=== PATIENT | male | born 1980 | race Caucasian/White ===

== ENCOUNTER → 2017-06-30 | Outpatient (REF) | payer OTHER | LOC: M SFHCLERA 11:59 | PROVIDERS: ATTEND Nurse Practitioner Family | DX: J02.9 Acute pharyngitis, unspecified (principal) ==

== ENCOUNTER → 2018-04-01 | Outpatient (CLI) | payer OTHER | LOC: M SLEEP 19:57 | DX: G47.30 Sleep apnea, unspecified (principal) | CPT/HCPCS: 95810 ==

== ENCOUNTER → 2018-04-29 | Outpatient (CLI) | payer OTHER | LOC: M SLEEP 19:47 | DX: G47.33 Obstructive sleep apnea (adult) (pediatric) (principal) | CPT/HCPCS: 95811 ==

== ENCOUNTER 2020-10-14 15:16 | Emergency (ER) | payer OTHER ==
[~2020-10-14] VITALS: Ht 177.8 cm; Wt 113.6 kg
[2020-10-14] MEDS ORDERED: IBUPROFEN 400MG TAB PO ONE (15:25)
[2020-10-14] MEDS ORDERED: PERCOCET 5MG/325MG TAB PO ONE (15:25)
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
[2020-10-14] MEDS ORDERED: OMEP-218 PO (16:13)
[2020-10-14] MEDS ORDERED: DULO1CAP6 PO (16:13)
[2020-10-14] MEDS ORDERED: HYDR-3363 (16:13)
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
[2020-10-14] MEDS ORDERED: IBUP-1022 PO (16:58)
[2020-10-14] MEDS ORDERED: SOMA350T PO (16:58)
[2020-10-14 17:15] VITALS: BP 142/85
== END 2020-10-14 17:16 | disposition home or self-care (01) ==
LOC: EDBD 15:16 → M ED 15:16
DX: M54.2 Cervicalgia (principal); M54.5 Low back pain; M25.511 Pain in right shoulder; T14.8XXA Other injury of unspecified body region, initial encounter; Y92.9 Unspecified place or not applicable; Y93.9 Activity, unspecified; M47.892 Other spondylosis, cervical region; M51.36 Other intervertebral disc degeneration, lumbar region; M47.816 Spondylosis without myelopathy or radiculopathy, lumbar region; M19.011 Primary osteoarthritis, right shoulder; Z88.2 Allergy status to sulfonamides

== ENCOUNTER → 2020-11-01 | Outpatient (CLI) | payer OTHER ==
[~2020-11-01] MED LIST: DULO1CAP6 PO; HYDR-3363; IBUP-1022 PO; OMEP-218 PO; PROHANCE 279.3MG/ML 15ML VIAL As Ordered ONE; PROHANCE 279.3MG/ML 5ML VIAL As Ordered ONE; SOMA350T PO
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
== END ==
LOC: M RAD 17:33
PROVIDERS: ATTEND Physician Assistant
DX: M25.472 Effusion, left ankle (principal); Z87.81 Personal history of (healed) traumatic fracture; D16.22 Benign neoplasm of long bones of left lower limb; M76.72 Peroneal tendinitis, left leg
CPT/HCPCS: 73720; A9576

== ENCOUNTER 2021-02-17 10:53 | Emergency (ER) | payer OTHER ==
[~2021-02-17] VITALS: Ht 177.8 cm; Wt 126.3 kg
[2021-02-17 10:53] VITALS: BP 146/98
[~2021-02-17 10:53] MED LIST changes: -PROHANCE 279.3MG/ML 15ML VIAL As Ordered ONE; -PROHANCE 279.3MG/ML 5ML VIAL As Ordered ONE; +RALTEGRAVIR 400 MG TAB (ISENTRESS) PO ONE; +TRUVADA 200MG/300MG TABLET PO ONE
[2021-02-17] MEDS ORDERED: RALT40TA PO ×2 (11:03→11:32)
[2021-02-17] MEDS ORDERED: HEPATITIS B VACCINE 20MCG/ML 1ML SYRINGE (ADULT DOSE) IM ONE (11:25)
[2021-02-17] MEDS ORDERED: EXPOSURE KIT-ADULT 7 DAY SUPPLY PO ONE (11:25)
[2021-02-17] MEDS ORDERED: TETANUS/DIPHTHERIA TOX ADSORB ADULT 0.5ML SYR/VIAL (90714) IM ONE (11:25)
[2021-02-17] MEDS ORDERED: ONDA4TAB6 PO (11:32)
[2021-02-17] MEDS ORDERED: EMTR1TAB16 PO (11:32)
[2021-02-17 12:00] LABS: BASO # 0.1 10^3/uL (0.0-0.2); BASO % 0.7 % (0.0-1.0); EOS # 0.1 10^3/uL (0.0-0.5); EOS % 0.7 % (0.0-3.0); HEMATOCRIT 48.6 % (42.0-52.0); HEMOGLOBIN 16.9 g/dl (13.5-17.5); LYMPH # 1.7 10^3/uL (1.5-5.0); LYMPH % 24.8 % (24.0-44.0); MEAN CORPUSCULAR HEMOGLOBIN 31.3 pg (27.0-33.0); MEAN CORPUSCULAR HGB CONC 34.8 g/dl (32.0-36.5); MONO # 0.4 10^3/uL (0.0-0.8); MONO % 5.5 % (2.0-8.0); NEUTROPHILS # 4.6 10^3/uL (1.5-8.5); PLATELET COUNT, AUTOMATED 181 10^3/uL (150-450); WHITE BLOOD COUNT 6.9 10^3/uL (4.0-10.0)
[2021-02-17 12:19] LABS: ALBUMIN 4.3 GM/DL (3.2-5.2); ALT/SGPT 40 U/L (12-78); BILIRUBIN,TOTAL 0.8 MG/DL (0.2-1.0); BLOOD UREA NITROGEN 15 MG/DL (7-18); CALCIUM LEVEL 9.6 MG/DL (8.5-10.1); CARBON DIOXIDE LEVEL 31 MEQ/L (21-32); CHLORIDE LEVEL 104 MEQ/L (98-107); CREATININE FOR GFR 1.02 MG/DL (0.70-1.30); GLOMERULAR FILTRATION RATE > 60.0 (>60); GLUCOSE, FASTING 97 MG/DL (70-100); POTASSIUM SERUM 4.1 MEQ/L (3.5-5.1); SODIUM LEVEL 140 MEQ/L (136-145); TOTAL PROTEIN 7.8 GM/DL (6.4-8.2)
[2021-02-17 12:34] LABS: HEPATITIS B SURFACE ANTIBODY NEGATIVE (POSITIVE)
[2021-02-17 12:45] LABS: HEPATITIS B SURFACE ANTIGEN NEGATIVE (NEGATIVE)
[2021-02-17 13:07] LABS: HEPATITIS C VIRUS ABY INDEX 0.1 INDEX (<0.8)
[2021-02-17 13:13] LABS: HIV 1&2 SCREEN CENTAUR NEGATIVE (NEGATIVE)
[2021-02-18] MEDS ORDERED: RALTEGRAVIR 400 MG TAB (ISENTRESS) PO SCH
[2021-02-18] MEDS ORDERED: TRUVADA 200MG/300MG TABLET PO SCH
== END 2021-02-17 14:55 | disposition home or self-care (01) ==
LOC: M ED 10:53
DX: Z77.21 Contact with and (suspected) exposure to potentially hazardous body fluids (principal); W46.1XXA Contact with contaminated hypodermic needle, initial encounter; Y92.9 Unspecified place or not applicable; Y93.9 Activity, unspecified; Y99.0 Civilian activity done for income or pay; K21.9 Gastro-esophageal reflux disease without esophagitis; Z88.2 Allergy status to sulfonamides; Z79.899 Other long term (current) drug therapy

== ENCOUNTER 2021-05-31 11:29 | Emergency (ER) | payer OTHER ==
[~2021-05-31] VITALS: Ht 177.8 cm; Wt 113.6 kg
[~2021-05-31 11:29] MED LIST changes: +EMTR1TAB16 PO; +ONDA4TAB6 PO; +RALT40TA PO; -RALTEGRAVIR 400 MG TAB (ISENTRESS) PO ONE; +RALTEGRAVIR 400 MG TAB (ISENTRESS) PO SCH; -TRUVADA 200MG/300MG TABLET PO ONE; +TRUVADA 200MG/300MG TABLET PO SCH
--- OUTSIDE RECORDS SUMMARY | 2021-05-31 11:35 | CCD ---
Author Author [facility] Organization [facility] Address Unknown Phone Unavailable Care Team Providers Care Cosmetic Sales Consultant Name Role Phone Radha, L Emely GEOGRAPHIC INFORMATION SYSTEMS DIRECTOR Unavailable Unavailable Radha, L Emely GEOGRAPHIC INFORMATION SYSTEMS DIRECTOR Unavailable Unavailable Radha, L Emely GEOGRAPHIC INFORMATION SYSTEMS DIRECTOR Unavailable Unavailable Radha, L Emely GEOGRAPHIC INFORMATION SYSTEMS DIRECTOR Unavailable Unavailable Radha, L Emely GEOGRAPHIC INFORMATION SYSTEMS DIRECTOR Unavailable Unavailable Radha, L Emely GEOGRAPHIC INFORMATION SYSTEMS DIRECTOR Unavailable Unavailable Radha, L Emely GEOGRAPHIC INFORMATION SYSTEMS DIRECTOR Unavailable Unavailable Radha, L Emely GEOGRAPHIC INFORMATION SYSTEMS DIRECTOR Unavailable Unavailable Radha, L Emely GEOGRAPHIC INFORMATION SYSTEMS DIRECTOR Unavailable Unavailable Radha, L Emely GEOGRAPHIC INFORMATION SYSTEMS DIRECTOR Unavailable Unavailable Radha, L Emely GEOGRAPHIC INFORMATION SYSTEMS DIRECTOR Unavailable Unavailable Radha, L Emely GEOGRAPHIC INFORMATION SYSTEMS DIRECTOR Unavailable Unavailable Radha, L Emely GEOGRAPHIC INFORMATION SYSTEMS DIRECTOR Unavailable Unavailable Radha, L Emely GEOGRAPHIC INFORMATION SYSTEMS DIRECTOR Unavailable Unavailable Radha, L Emely GEOGRAPHIC INFORMATION SYSTEMS DIRECTOR Unavailable Unavailable Radha, L Emely GEOGRAPHIC INFORMATION SYSTEMS DIRECTOR Unavailable Unavailable Radha, L Emely GEOGRAPHIC INFORMATION SYSTEMS DIRECTOR Unavailable Unavailable Radha, L Emely GEOGRAPHIC INFORMATION SYSTEMS DIRECTOR Unavailable Unavailable Radha, L Emely GEOGRAPHIC INFORMATION SYSTEMS DIRECTOR Unavailable Unavailable Radha, L Emely GEOGRAPHIC INFORMATION SYSTEMS DIRECTOR Unavailable Unavailable Radha, L Emely GEOGRAPHIC INFORMATION SYSTEMS DIRECTOR Unavailable Unavailable Radha, L Emely GEOGRAPHIC INFORMATION SYSTEMS DIRECTOR Unavailable Unavailable Radha, L Emely GEOGRAPHIC INFORMATION SYSTEMS DIRECTOR Unavailable Unavailable Radha, L Emely GEOGRAPHIC INFORMATION SYSTEMS DIRECTOR Unavailable Unavailable Radha, L Emely GEOGRAPHIC INFORMATION SYSTEMS DIRECTOR Unavailable Unavailable LETTIERE, A MIRNA PA Unavailable Unavailable LETTIERE, A MIRNA PA Unavailable Unavailable LETTIERE, A MIRNA PA Unavailable Unavailable LETTIERE, A MIRNA PA Unavailable Unavailable LETTIERE, A MIRNA PA Unavailable Unavailable LETTIERE, A MIRNA PA Unavailable Unavailable LETTIERE, A MIRNA PA Unavailable Unavailable LETTIERE, A MIRNA PA Unavailable Unavailable LETTIERE, A MIRNA PA Unavailable Unavailable LETTIERE, A MIRNA PA Unavailable Unavailable LETTIERE, A MIRNA PA Unavailable Unavailable LETTIERE, A MIRNA PA Unavailable Unavailable LETTIERE, A MIRNA PA Unavailable Unavailable LETTIERE, A MIRNA PA Unavailable Unavailable LETTIERE, A MIRNA PA Unavailable Unavailable LETTIERE, A MIRNA PA Unavailable Unavailable LETTIERE, A MIRNA PA Unavailable Unavailable LETTIERE, A MIRNA PA Unavailable Unavailable LETTIERE, A MIRNA PA Unavailable Unavailable LETTIERE, A MIRNA PA Unavailable Unavailable LETTIERE, A MIRNA PA Unavailable Unavailable LETTIERE, A MIRNA PA Unavailable Unavailable LETTIERE, A MIRNA PA Unavailable Unavailable LETTIERE, A MIRNA PA Unavailable Unavailable LETTIERE, A MIRNA PA Unavailable Unavailable LETTIERE, A MIRNA PA Unavailable Unavailable LETTIERE, A MIRNA PA Unavailable Unavailable LETTIERE, A MIRNA PA Unavailable Unavailable LETTIERE, A MIRNA PA Unavailable Unavailable LETTIERE, A MIRNA PA Unavailable Unavailable LETTIERE, A MIRNA PA Unavailable Unavailable Nevills, C Wendy GEOGRAPHIC INFORMATION SYSTEMS DIRECTOR Unavailable Unavailable Nevills, C Wendy GEOGRAPHIC INFORMATION SYSTEMS DIRECTOR Unavailable Unavailable Nevills, C Wendy GEOGRAPHIC INFORMATION SYSTEMS DIRECTOR Unavailable Unavailable Nevills, C Wendy GEOGRAPHIC INFORMATION SYSTEMS DIRECTOR Unavailable Unavailable Nevills, C Wendy GEOGRAPHIC INFORMATION SYSTEMS DIRECTOR Unavailable Unavailable Nevills, C Wendy GEOGRAPHIC INFORMATION SYSTEMS DIRECTOR Unavailable Unavailable Nevills, C Wendy GEOGRAPHIC INFORMATION SYSTEMS DIRECTOR Unavailable Unavailable Nevills, C Wendy GEOGRAPHIC INFORMATION SYSTEMS DIRECTOR Unavailable Unavailable Nevills, C Wendy GEOGRAPHIC INFORMATION SYSTEMS DIRECTOR Unavailable Unavailable Nevills, C Wendy GEOGRAPHIC INFORMATION SYSTEMS DIRECTOR Unavailable Unavailable Nevills, C Wendy GEOGRAPHIC INFORMATION SYSTEMS DIRECTOR Unavailable Unavailable Nevills, C Wendy GEOGRAPHIC INFORMATION SYSTEMS DIRECTOR Unavailable Unavailable Nevills, C Wendy GEOGRAPHIC INFORMATION SYSTEMS DIRECTOR Unavailable Unavailable Nevills, C Wendy GEOGRAPHIC INFORMATION SYSTEMS DIRECTOR Unavailable Unavailable Nevills, C Wendy GEOGRAPHIC INFORMATION SYSTEMS DIRECTOR Unavailable Unavailable Nevills, C Wendy GEOGRAPHIC INFORMATION SYSTEMS DIRECTOR Unavailable Unavailable Nevills, C Wendy GEOGRAPHIC INFORMATION SYSTEMS DIRECTOR Unavailable Unavailable Nevills, C Wendy GEOGRAPHIC INFORMATION SYSTEMS DIRECTOR Unavailable Unavailable Nevills, C Wendy GEOGRAPHIC INFORMATION SYSTEMS DIRECTOR Unavailable Unavailable Nevills, C Wendy GEOGRAPHIC INFORMATION SYSTEMS DIRECTOR Unavailable Unavailable Nevills, C Wendy GEOGRAPHIC INFORMATION SYSTEMS DIRECTOR Unavailable Unavailable Nevills, C Wendy GEOGRAPHIC INFORMATION SYSTEMS DIRECTOR Unavailable Unavailable Nevills, C Wendy GEOGRAPHIC INFORMATION SYSTEMS DIRECTOR Unavailable Unavailable Nevills, C Wendy GEOGRAPHIC INFORMATION SYSTEMS DIRECTOR Unavailable Unavailable Nevills, C Wendy GEOGRAPHIC INFORMATION SYSTEMS DIRECTOR Unavailable Unavailable Nevills, C Wendy GEOGRAPHIC INFORMATION SYSTEMS DIRECTOR Unavailable Unavailable Nevills, C Wendy GEOGRAPHIC INFORMATION SYSTEMS DIRECTOR Unavailable Unavailable Nevills, C Wendy GEOGRAPHIC INFORMATION SYSTEMS DIRECTOR Unavailable Unavailable Nevills, C Wendy GEOGRAPHIC INFORMATION SYSTEMS DIRECTOR Unavailable Unavailable Nevills, C Wendy GEOGRAPHIC INFORMATION SYSTEMS DIRECTOR Unavailable Unavailable Nevills, C Wendy GEOGRAPHIC INFORMATION SYSTEMS DIRECTOR Unavailable Unavailable Nevills, C Wendy GEOGRAPHIC INFORMATION SYSTEMS DIRECTOR Unavailable Unavailable Nevills, C Wendy GEOGRAPHIC INFORMATION SYSTEMS DIRECTOR Unavailable Unavailable Nevills, C Wendy GEOGRAPHIC INFORMATION SYSTEMS DIRECTOR Unavailable Unavailable Rubio, Rashel Priset MD Unavailable Unavailable Rubio, Rashel Priest MD Unavailable Unavailable Rubio, Rashel Priest MD Unavailable Unavailable Rubio, Rashel Priest MD Unavailable Unavailable Rubio, Rashel Priest MD Unavailable Unavailable Rubio, Rashel Priest MD Unavailable Unavailable Rubio, Rashel Priest MD Unavailable Unavailable Rubio, Rashel Priest MD Unavailable Unavailable Rubio, Rashel Priest MD Unavailable Unavailable Rubio, Rashel Priest MD Unavailable Unavailable Rubio, Rashel Priest MD Unavailable Unavailable Rubio, Rashel Priest MD Unavailable Unavailable Rubio, Rashel Priest MD Unavailable Unavailable Rubio, Rashel Priest MD Unavailable Unavailable Rubio, Rashel Priest MD Unavailable Unavailable Rubio, Rashel Priest MD Unavailable Unavailable Rubio, Rashel Priest MD Unavailable Unavailable Rubio, Rashel Priest MD Unavailable Unavailable Rubio, Rashel Priest MD Unavailable Unavailable Rubio, Rashel Priest MD Unavailable Unavailable Rubio, Rashel Priest MD Unavailable Unavailable Rubio, Rashel Priest MD Unavailable Unavailable Rubio, Rashel Priest MD Unavailable Unavailable Rubio, Rashel Priest MD Unavailable Unavailable Rubio, Rashel Priest MD Unavailable Unavailable Rubio, Rashel Priest MD Unavailable Unavailable Rubio, Rashel Priest MD Unavailable Unavailable Rubio, Rashel Priest MD Unavailable Unavailable Rubio, Rashel Priest MD Unavailable Unavailable Rubio, Rashel Priest MD Unavailable Unavailable Rubio, Rashel Priest MD Unavailable Unavailable Rubio, Rashel Priest MD Unavailable Unavailable Rubio, Rashel Priest MD Unavailable Unavailable Rubio, Rashel Priest MD Unavailable Unavailable Rubio, Rashel Priest MD Unavailable Unavailable Rubio, Rashel Priest MD Unavailable Unavailable Rubio, Rashel Priest MD Unavailable Unavailable Rubio, Rashel Priest MD Unavailable Unavailable Rubio, Rashel Priest MD Unavailable Unavailable Rubio, Rashel Priest MD Unavailable Unavailable Rubio, Rashel Priest MD Unavailable Unavailable Rubio, Rashel Priest MD Unavailable Unavailable Rubio, Rashel Priest MD Unavailable Unavailable Rubio, Rashel Priest MD Unavailable Unavailable Rubio, Rashel Priest MD Unavailable Unavailable Rubio, Rashel Priest MD Unavailable Unavailable Rubio, Rashel Priest MD Unavailable Unavailable Rashel Rubio MD Unavailable Unavailable Rashel Rubio MD Unavailable Unavailable Rashel Rubio MD Unavailable Unavailable SANDOVAL, J LAURYN PA Unavailable Unavailable SANDOVAL, J LAURYN PA Unavailable Unavailable SANDOVAL, J LAURYN PA Unavailable Unavailable SANDOVAL, J LAURYN PA Unavailable Unavailable SANDOVAL, J LAURYN PA Unavailable Unavailable SANDOVAL, J LAURYN PA Unavailable Unavailable SANDOVAL, J LAURYN PA Unavailable Unavailable SANDOVAL, J LAURYN PA Unavailable Unavailable SANDOVAL, J LAURYN PA Unavailable Unavailable SANDOVAL, J LAURYN PA Unavailable Unavailable SANDOVAL, J LAURYN PA Unavailable Unavailable SANDOVAL, J LAURYN PA Unavailable Unavailable SANDOVAL, J LAURYN PA Unavailable Unavailable SANDOVAL, J LAURYN PA Unavailable Unavailable SANDOVAL, J LAURYN PA Unavailable Unavailable SANDOVAL, J LAURYN PA Unavailable Unavailable SANDOVAL, J LAURYN PA Unavailable Unavailable SANDOVAL, J LAURYN PA Unavailable Unavailable SANDOVAL, J LAURYN PA Unavailable Unavailable SANDOVAL, J LAURYN PA Unavailable Unavailable SANDOVAL, J LAURYN PA Unavailable Unavailable SANDOVAL, J LAURYN PA Unavailable Unavailable SANDOVAL, J LAURYN PA Unavailable Unavailable SANDOVAL, J LAURYN PA Unavailable Unavailable SANDOVAL, J LAURYN PA Unavailable Unavailable SANDOVAL, J LAURYN PA Unavailable Unavailable SANDOVAL, J LAURYN PA Unavailable Unavailable Diego Mayo MD Unavailable Unavailable Diego Mayo MD Unavailable Unavailable Diego Mayo MD Unavailable Unavailable Diego Mayo MD Unavailable Unavailable Diego Mayo MD Unavailable Unavailable Diego Mayo MD Unavailable Unavailable Diego Mayo MD Unavailable Unavailable Diego Mayo MD Unavailable Unavailable Diego Mayo MD Unavailable Unavailable Diego Mayo MD Unavailable Unavailable Diego Mayo MD Unavailable Unavailable Diego Mayo MD Unavailable Unavailable Diego Mayo MD Unavailable Unavailable Diego Mayo MD Unavailable Unavailable Diego Mayo MD Unavailable Unavailable Diego Mayo MD Unavailable Unavailable Diego Mayo MD Unavailable Unavailable Diego Mayo MD Unavailable Unavailable Diego Mayo MD Unavailable Unavailable Diego Mayo MD Unavailable Unavailable Diego Mayo MD Unavailable Unavailable Diego Mayo MD Unavailable Unavailable Diego Mayo MD Unavailable Unavailable Diego Mayo MD Unavailable Unavailable Diego Mayo MD Unavailable Unavailable Diego Mayo MD Unavailable Unavailable Diego Mayo MD Unavailable Unavailable Diego Mayo MD Unavailable Unavailable Diego Mayo MD Unavailable Unavailable Gael, Diego Talbert MD Unavailable Unavailable Gael, Diego Talbert MD Unavailable Unavailable Gael, Diego Talbert MD Unavailable Unavailable Gael, Diego Talbert MD Unavailable Unavailable Gael, Diego Talbert MD Unavailable Unavailable Gael, Diego Talbert MD Unavailable Unavailable Gael, Diego Talbert MD Unavailable Unavailable Gael, Diego Talbert MD Unavailable Unavailable Gael, Diego Talbert MD Unavailable Unavailable Gael, Diego Talbert MD Unavailable Unavailable Gael, Diego Talbert MD Unavailable Unavailable Gael, Diego Talbert MD Unavailable Unavailable Gael, Diego Talbert MD Unavailable Unavailable Walker, A Karina PA Unavailable Unavailable Walker, A Karina PA Unavailable Unavailable Walker, A Karina PA Unavailable Unavailable Walker, A Karina PA Unavailable Unavailable Walker, A Karina PA Unavailable Unavailable Walker, A Karina PA Unavailable Unavailable Walker, A Karina PA Unavailable Unavailable Walker, A Karina PA Unavailable Unavailable Walker, A Karina PA Unavailable Unavailable Walker, A Karina PA Unavailable Unavailable Walker, A Karina PA Unavailable Unavailable Walker, A Karina PA Unavailable Unavailable Walker, A Karina PA Unavailable Unavailable Walker, A Karina PA Unavailable Unavailable Walker, A Karina PA Unavailable Unavailable Walker, A Karina PA Unavailable Unavailable Walker, A Karina PA Unavailable Unavailable Walker, A Karina PA Unavailable Unavailable Walker, A Karina PA Unavailable Unavailable Walker, A Karina PA Unavailable Unavailable Walker, A Karina PA Unavailable Unavailable Walker, A Karina PA Unavailable Unavailable Walker, A Karina PA Unavailable Unavailable Walker, A Karina PA Unavailable Unavailable Walker, A Karina PA Unavailable Unavailable Walker, A Karina PA Unavailable Unavailable Walker, A Karina PA Unavailable Unavailable Walker, A Karina PA Unavailable Unavailable Walker, A Karina PA Unavailable Unavailable Walker, A Karina PA Unavailable Unavailable Walker, A Karina PA Unavailable Unavailable Walker, A Karina PA Unavailable Unavailable Walker, A Karina PA Unavailable Unavailable Walker, A Karina PA Unavailable Unavailable Walker, A Karina PA Unavailable Unavailable Walker, A Karina PA Unavailable Unavailable Nevills, C Wendy GEOGRAPHIC INFORMATION SYSTEMS DIRECTOR Unavailable Unavailable Nevills, C Wendy GEOGRAPHIC INFORMATION SYSTEMS DIRECTOR Unavailable Unavailable Nevills, C Wendy GEOGRAPHIC INFORMATION SYSTEMS DIRECTOR Unavailable Unavailable Nevills, C Wendy GEOGRAPHIC INFORMATION SYSTEMS DIRECTOR Unavailable Unavailable Nevills, C Wendy GEOGRAPHIC INFORMATION SYSTEMS DIRECTOR Unavailable Unavailable Nevills, C Wendy GEOGRAPHIC INFORMATION SYSTEMS DIRECTOR Unavailable Unavailable Nevills, C Wendy GEOGRAPHIC INFORMATION SYSTEMS DIRECTOR Unavailable Unavailable Nevills, C Wendy GEOGRAPHIC INFORMATION SYSTEMS DIRECTOR Unavailable Unavailable Nevills, C Wendy GEOGRAPHIC INFORMATION SYSTEMS DIRECTOR Unavailable Unavailable Nevills, C Wendy GEOGRAPHIC INFORMATION SYSTEMS DIRECTOR Unavailable Unavailable Nevills, C Wendy GEOGRAPHIC INFORMATION SYSTEMS DIRECTOR Unavailable Unavailable Nevills, C Wendy GEOGRAPHIC INFORMATION SYSTEMS DIRECTOR Unavailable Unavailable Nevills, C Wendy GEOGRAPHIC INFORMATION SYSTEMS DIRECTOR Unavailable Unavailable Nevills, C Wendy GEOGRAPHIC INFORMATION SYSTEMS DIRECTOR Unavailable Unavailable Nevills, C Wendy GEOGRAPHIC INFORMATION SYSTEMS DIRECTOR Unavailable Unavailable Nevills, C Wendy GEOGRAPHIC INFORMATION SYSTEMS DIRECTOR Unavailable Unavailable Nevills, C Wendy GEOGRAPHIC INFORMATION SYSTEMS DIRECTOR Unavailable Unavailable Nevills, C Wendy GEOGRAPHIC INFORMATION SYSTEMS DIRECTOR Unavailable Unavailable Nevills, C Wendy GEOGRAPHIC INFORMATION SYSTEMS DIRECTOR Unavailable Unavailable Nevills, C Wendy GEOGRAPHIC INFORMATION SYSTEMS DIRECTOR Unavailable Unavailable Nevills, C Wendy GEOGRAPHIC INFORMATION SYSTEMS DIRECTOR Unavailable Unavailable Nevills, C Wendy GEOGRAPHIC INFORMATION SYSTEMS DIRECTOR Unavailable Unavailable Nevills, C Wendy GEOGRAPHIC INFORMATION SYSTEMS DIRECTOR Unavailable Unavailable Nevills, C Wendy GEOGRAPHIC INFORMATION SYSTEMS DIRECTOR Unavailable Unavailable Nevills, C Wendy GEOGRAPHIC INFORMATION SYSTEMS DIRECTOR Unavailable Unavailable Nevills, C Wendy GEOGRAPHIC INFORMATION SYSTEMS DIRECTOR Unavailable Unavailable Nevills, C Wendy GEOGRAPHIC INFORMATION SYSTEMS DIRECTOR Unavailable Unavailable Nevills, C Wendy GEOGRAPHIC INFORMATION SYSTEMS DIRECTOR Unavailable Unavailable Nevills, C Wendy GEOGRAPHIC INFORMATION SYSTEMS DIRECTOR Unavailable Unavailable Nevills, C Wendy GEOGRAPHIC INFORMATION SYSTEMS DIRECTOR Unavailable Unavailable Nevills, C Wendy GEOGRAPHIC INFORMATION SYSTEMS DIRECTOR Unavailable Unavailable Nevills, C Wendy GEOGRAPHIC INFORMATION SYSTEMS DIRECTOR Unavailable Unavailable Nevills, C Wendy GEOGRAPHIC INFORMATION SYSTEMS DIRECTOR Unavailable Unavailable Nevills, C Wendy GEOGRAPHIC INFORMATION SYSTEMS DIRECTOR Unavailable Unavailable Crow Apodaca PA Unavailable Unavailable Crow [place] PA Unavailable Unavailable Crow [place] PA Unavailable Unavailable Crow [place] PA Unavailable Unavailable Crow [place] PA Unavailable Unavailable Crow [place] PA Unavailable Unavailable Crow [place] PA Unavailable Unavailable Crow [place] PA Unavailable Unavailable Crow [place] PA Unavailable Unavailable Crow [place] PA Unavailable Unavailable Crow [place] PA Unavailable Unavailable Crow [place] PA Unavailable Unavailable Crow [place] PA Unavailable Unavailable Crow [place] PA Unavailable Unavailable Crow [place] PA Unavailable Unavailable Crow [place] PA Unavailable Unavailable Crow [place] PA Unavailable Unavailable Crow [place] PA Unavailable Unavailable Crow [place] PA Unavailable Unavailable Crow [place] PA Unavailable Unavailable Crow [place] PA Unavailable Unavailable Crow [place] PA Unavailable Unavailable Crow [place] PA Unavailable Unavailable Crow [place] PA Unavailable Unavailable Crow [place] PA Unavailable Unavailable Crow [place] PA Unavailable Unavailable Crow [place] Unavailable Unavailable Crow [place] Unavailable Unavailable [place], M Barratt PA Unavailable Unavailable SANDOVAL, J LAURYN PA Unavailable Unavailable SANDOVAL, J LAURYN PA Unavailable Unavailable SANDOVAL, J LAURYN PA Unavailable Unavailable SANDOVAL, J LAURYN PA Unavailable Unavailable SANDOVAL, J LAURYN PA Unavailable Unavailable SANDOVAL, J LAURYN PA Unavailable Unavailable SANDOVAL, J LAURYN PA Unavailable Unavailable SANDOVAL, J LAURYN PA Unavailable Unavailable SANDOVAL, J LAURYN PA Unavailable Unavailable SANDOVAL, J LAURYN PA Unavailable Unavailable SANDOVAL, J LAURYN PA Unavailable Unavailable SANDOVAL, J LAURYN PA Unavailable Unavailable SANDOVAL, J LAURYN PA Unavailable Unavailable SANDOVAL, J LAURYN PA Unavailable Unavailable SANDOVAL, J LAURYN PA Unavailable Unavailable SANDOVAL, J LAURYN PA Unavailable Unavailable SANDOVAL, J LAURYN PA Unavailable Unavailable SANDOVAL, J LAURYN PA Unavailable Unavailable SANDOVAL, J LAURYN PA Unavailable Unavailable SANDOVAL, J LAURYN PA Unavailable Unavailable SANDOVAL, J LAURYN PA Unavailable Unavailable SANDOVAL, J LAURYN PA Unavailable Unavailable SANDOVAL, J LAURYN PA Unavailable Unavailable SANDOVAL, J LAURYN PA Unavailable Unavailable SANDOVAL, J LAURYN PA Unavailable Unavailable SANDOVAL, J LAURYN PA Unavailable Unavailable SANDOVAL, J LAURYN PA Unavailable Unavailable Davin, Krystle Melissa ANP-BC Unavailable Unavailable Davin, Krystle Melissa ANP-BC Unavailable Unavailable Davin, Krystle Melissa ANP-BC Unavailable Unavailable Davin, Krystle Melissa ANP-BC Unavailable Unavailable Davin, Krystle Melissa ANP-BC Unavailable Unavailable Davin, Krystle Melissa ANP-BC Unavailable Unavailable Davin, Krystle Melissa ANP-BC Unavailable Unavailable Davin, Krystle Melissa ANP-BC Unavailable Unavailable Davin, Krystle Melissa ANP-BC Unavailable Unavailable Davin, Krystle Melissa ANP-BC Unavailable Unavailable Davin, Krystle Melissa ANP-BC Unavailable Unavailable Davin, Krystle Melissa ANP-BC Unavailable Unavailable Davin, Krystle Melissa ANP-BC Unavailable Unavailable Davin, Krystle Melissa ANP-BC Unavailable Unavailable Davin, Krystle Melissa ANP-BC Unavailable Unavailable Davin, Krystle Melissa ANP-BC Unavailable Unavailable Davin, Krystle Melissa ANP-BC Unavailable Unavailable Davin, Krystle Melissa ANP-BC Unavailable Unavailable Davin, Krystle Melissa ANP-BC Unavailable Unavailable Davin, Krystle Melsisa ANP-BC Unavailable Unavailable Davin, Krystle Melissa ANP-BC Unavailable Unavailable Davin, Krystle Melissa ANP-BC Unavailable Unavailable Davni, Krystle Melissa ANP-BC Unavailable Unavailable Davin, Krystle Melissa ANP-BC Unavailable Unavailable Davin, Krystle Melissa ANP-BC Unavailable Unavailable Davin, Krystle Melissa ANP-BC Unavailable Unavailable Davin, Krystle Melissa ANP-BC Unavailable Unavailable Davin, Krystle Melissa ANP-BC Unavailable Unavailable Davin, Krystle Melissa ANP-BC Unavailable Unavailable Davin, Krystle Melissa ANP-BC Unavailable Unavailable Davin, Krystle Melissa ANP-BC Unavailable Unavailable Davin, Krystle Melissa ANP-BC Unavailable Unavailable Davin, Krystle Melissa ANP-BC Unavailable Unavailable Davin, Krystle Melissa ANP-BC Unavailable Unavailable Davin, Krystle Melissa ANP-BC Unavailable Unavailable Davin, Krystle Melissa ANP-BC Unavailable Unavailable Davin, Krystle Melissa ANP-BC Unavailable Unavailable Davin, Krystle Melissa ANP-BC Unavailable Unavailable Davin, Krystle Melissa ANP-BC Unavailable Unavailable Davin, Krystle Melissa ANP-BC Unavailable Unavailable Davin, Krystle Melissa ANP-BC Unavailable Unavailable Davin, Krystle Melissa ANP-BC Unavailable Unavailable Davin, Krystle Melissa ANP-BC Unavailable Unavailable Davin, Krystle Melissa ANP-BC Unavailable Unavailable Davin, Krystle Melissa ANP-BC Unavailable Unavailable Davin, Krystle Melissa ANP-BC Unavailable Unavailable Davin, Krystle Melissa ANP-BC Unavailable Unavailable Davin, Krystle Emlissa ANP-BC Unavailable Unavailable Davin, Krystle Melissa ANP-BC Unavailable Unavailable Davin, Krystle Melissa ANP-BC Unavailable Unavailable Davin, Krystle Melissa ANP-BC Unavailable Unavailable Davin, Kryslte Melissa ANP-BC Unavailable Unavailable Davin, Krystle Melissa ANP-BC Unavailable Unavailable Davin, Krystle Melissa ANP-BC Unavailable Unavailable Davin, Krystle Melissa ANP-BC Unavailable Unavailable Davin, Krystle Melissa ANP-BC Unavailable Unavailable Davin, Krystle Melissa ANP-BC Unavailable Unavailable Davin, Krystle Melissa ANP-BC Unavailable Unavailable Davin, Krystle Melissa ANP-BC Unavailable Unavailable Davin, Krystle Melissa ANP-BC Unavailable Unavailable Davin, Krystle Melissa ANP-BC Unavailable Unavailable Davin, Krystle Melissa ANP-BC Unavailable Unavailable Davin, Krystle Melissa ANP-BC Unavailable Unavailable Krystle Jinn ANP-BC Unavailable Unavailable Davin, Krystle Melissa ANP-BC Unavailable Unavailable Davin, Krystle Galician ANP-BC Unavailable Unavailable Arroyo, M Christopher PA-C Unavailable Unavailable Arroyo, M Christopher PA-C Unavailable Unavailable Arroyo, M Christopher PA-C Unavailable Unavailable Arroyo, M Christopher PA-C Unavailable Unavailable Arroyo, M Christopher PA-C Unavailable Unavailable Arroyo, M Christopher PA-C Unavailable Unavailable Arroyo, M Christopher PA-C Unavailable Unavailable Arroyo, M Christopher PA-C Unavailable Unavailable Arroyo, M Christopher PA-C Unavailable Unavailable Arroyo, M Christopher PA-C Unavailable Unavailable Arroyo, M Christopher PA-C Unavailable Unavailable Arroyo, M Christopher PA-C Unavailable Unavailable Arroyo, M Christopher PA-C Unavailable Unavailable Arroyo, M Christopher PA-C Unavailable Unavailable Arroyo, M Christopher PA-C Unavailable Unavailable Arroyo, M Christopher PA-C Unavailable Unavailable Arroyo, M Christopher PA-C Unavailable Unavailable Arroyo, M Christopher PA-C Unavailable Unavailable Arroyo, M Christopher PA-C Unavailable Unavailable Arroyo, M Christopher PA-C Unavailable Unavailable Arroyo, M Christopher PA-C Unavailable Unavailable Arroyo, M Christopher PA-C Unavailable Unavailable Arroyo, M Christopher PA-C Unavailable Unavailable Arroyo, M Christopher PA-C Unavailable Unavailable Arroyo, M Christopher PA-C Unavailable Unavailable Arroyo, M Christopher PA-C Unavailable Unavailable Re-disclosure Warning The records that you are about to access may contain information from federally-assisted alcohol or drug abuse programs. If such information is present, then the following federally mandated warning applies: This information has been disclosed to you from records protected by federal confidentiality rules (42 CFR part 2). The federal rules prohibit you from making any further disclosure of this information unless further disclosure is expressly permitted by the written consent of the person to whom it pertains or as otherwise permitted by 42 CFR part 2. A general authorization for the release of medical or other information is NOT sufficient for this purpose. The Federal rules restrict any use of the information to criminally investigate or prosecute any alcohol or drug abuse patient.The records that you are about to access may contain highly sensitive health information, the redisclosure of which is protected by Article 27-F of the [facility] Public Health law. If you continue you may have access to information: Regarding HIV / AIDS; Provided by facilities licensed or operated by the [facility] Office of Mental Health; or Provided by the [facility] Office for People With Developmental Disabilities. If such information is present, then the following [facility] mandated warning applies: This information has been disclosed to you from confidential records which are protected by state law. State law prohibits you from making any further disclosure of this information without the specific written consent of the person to whom it pertains, or as otherwise permitted by law. Any unauthorized further disclosure in violation of state law may result in a fine or group home sentence or both. A general authorization for the release of medical or other information is NOT sufficient authorization for further disc losure. Family History Family Member Name Family Member Gender Family Member Status Date o f Status Description Data Source(s) Unknown Male Problem [facility] ([facility] Encounters Encounter Providers Location Date Indications Data Source(s ) Outpatient Attender: Nitish Mayo MDConsultant: Karina INTERIANO 03/05/2021 01:08:00 PM EDT - 03/05/2021 01:08:00 PM EDT [facility] Outpatient Attender: Emely Layton/Leanne/Taye/Sherry 12/23/2020 01:00:00 PM EDT [facility] ([facility] Outpatient Attender: Wendy Dolan NPConsultant: Karina INTERIANO 12/03/2020 08:25:00 AM EDT - 12/03/2020 08:25:00 AM EDT [facility] Outpatient Attender: Wendy Dolan NPConsultant: Karina INTERIANO 11/27/2020 09:41:00 AM EDT - 11/27/2020 09:41:00 AM EDT [facility] Outpatient Attender: Wendy Dolan NP Family Practice 11/27 09:40:00 AM EDT [facility] ([facility]) Outpatient Attender: Trevor INTERIANO Physical Therapy 02:00:00 PM EDT [facility] ([facility]) Outpatient Attender: Dale Arroyo PA-C 10/27/2020 04:38:26 PM EDT - 10/27/2020 07:17:30 PM EDT [facility] ([facility]) Outpatient Attender: Cem Rubio MD Physical Therapy 10/24/2020 0 3:15:00 PM EDT [facility] ([facility]) Outpatient Attender: Melissa Jin ANP-BCA ttender: Wendy Dolan NPConsultant: Karina INTERIANO 10/08/2020 08:28:00 AM EDT - 10/08/2020 08:28 :00 AM EDT [facility] Outpatient Attender: Melissa Jin ANP-BCConsultant: Karina INTERIANO 08/27/2020 09:13:00 AM EST - 08/27/2020 09:13:00 AM EST [facility] Outpatient Attender: MIRNA Bach aletha 07/05/2020 07:20:00 AM EST [facility] ([facility]) Outpatient Attender: LAURYN SANDOVAL PAConsultant: Karina INTERIANO 05/07/2020 03:26:00 PM EDT - 05/07/2020 03:26:00 PM EDT [facility] Outpatient Attender: LAURYN INTERIANO Family Practice 05/07 03:20:00 PM EDT [facility] ([facility] Medications Medication Brand Name Start Date Product Form Dose Route Admi nistrative Instructions Pharmacy Instructions Status Indications Reaction Description Data Source(s) 100 mg 03/05/2021 12:00:00 AM EDT capsule 90 TAKE THREE CAPSULES BY MOUTH EVERY DAY TAKE THREE CAPSULES BY MOUTH EVERY DAY SOLD: 03/17/2021 [facility] 200-300 mg 02/24/2021 12:00:00 AM EDT tablet 21 TAKE ONE TABLET BY MOUTH EVERY DAY TAKE ONE TABLET BY MOUTH EVERY DAY SOLD: 02/24/2021 [facility] 400 mg 02/24/2021 12:00:00 AM EDT tablet 42 TAKE ONE TABLET BY MOUTH TWICE A DAY TAKE ONE TABLET BY MOUTH TWICE A DAY SOLD: 02/24/2021 [facility] Ondansetron 4 MG Disintegrating Oral Tablet ONDANSETRON 02/17/2021 12:00:00 AM EDT tablet,disintegrating 8 DISSOLVE O NE TABLET ON TONGUE EVERY 6 TO 8 HOURS NEEDED FOR NAUSEA AND VOMITING DISSOLVE ONE TABLET ON TONGUE EVERY 6 TO 8 HOURS NEEDED FOR NAUSEA AND VOMITING SOLD: 02/17/2021 [facility] Diclofenac Sodium 0.01 MG/MG Topical Gel [Voltaren] Voltaren 11/27/2020 12:00:00 AM EDT active [facility] ([facility]) 500 mg 10/25/2020 12:00:00 AM EDT tablet 60 TAKE ONE TABLET BY MOUTH TWICE A DAY TAKE ONE TABLET BY MOUTH TWICE A DAY SOLD: 11/01/2020 [facility] Naproxen 500 MG Oral Tablet [Naprosyn] Naprosyn 10/24/2020 12:00:00 AM EDT ORAL active [facility] ([facility] 600 mg 10/14/2020 12:00:00 AM EDT tablet 30 TAKE ONE TABLET BY MOUTH EVERY 6 HOURS NEEDED FOR PAIN TAKE ONE TABLET BY MOUTH EVERY 6 HOURS A S NEEDED FOR PAIN SOLD: 10/14/2020 [facility] 350 mg 10/14/2020 12:00:00 AM EDT tablet 15 TAKE ONE TABLET BY MOUTH THREE TIMES A DAY NEEDED FOR MUSCLE SPASM MAXIMUM DAILY DOSE = 3 TAKE ONE TABLET BY MOUTH THREE TIMES A DAY NEEDED FOR MUSCLE SPASM MAXIMUM DAILY DOSE = 3 SOLD: 10/14/2020 [facility] duloxetine 60 MG Delayed Release Oral Capsule Duloxetine HCL 05/07/2020 12:00:00 AM EDT active [facility] ([facility]) Melatonin 5 MG Sublingual Tablet Melatonin 05/07/2020 12:00:00 AM EDT ORAL active [facility] ([facility]) 20 mg 12/26/2019 12:00:00 AM EDT capsule,delayed release (DR/EC) 30 TAKE ONE CAPSULE BY MOUTH EVERY DAY TAKE ONE CAPSULE BY MOUTH EVERY DAY SOLD: 04/02/2020 [facility] 20 mg 12/26/2019 12:00:00 AM EDT capsule,delayed release (DR/EC) 30 TAKE ONE CAPSULE BY MOUTH EVERY DAY TAKE ONE CAPSULE BY MOUTH EVERY DAY SOLD: 06/30/2020 [facility] 20 mg 12/26/2019 12:00:00 AM EDT capsule,delayed release (DR/EC) 30 TAKE ONE CAPSULE BY MOUTH EVERY DAY TAKE ONE CAPSULE BY MOUTH EVERY DAY SOLD: 05/31/2020 [facility] 20 mg 12/26/2019 12:00:00 AM EDT capsule,delayed release (DR/EC) 30 TAKE ONE CAPSULE BY MOUTH EVERY DAY TAKE ONE CAPSULE BY MOUTH EVERY DAY SOLD: 08/30/2020 [facility] 20 mg 12/26/2019 12:00:00 AM EDT capsule,delayed release (DR/EC) 30 TAKE ONE CAPSULE BY MOUTH EVERY DAY TAKE ONE CAPSULE BY MOUTH EVERY DAY SOLD: 05/01/2020 [facility] 20 mg 12/26/2019 12:00:00 AM EDT capsule,delayed release (DR/EC) 30 TAKE ONE CAPSULE BY MOUTH EVERY DAY TAKE ONE CAPSULE BY MOUTH EVERY DAY SOLD: 07/30/2020 [facility] Insurance Providers Payer name Policy type / Coverage type Policy ID Covered republican ID Covered republican's relationship to farr Policy Farr Plan Information [facility] [id number] Self [id number] R [id number] S [id number] [facility] [id number] S [id number] [facility] [id number] SP [id number] [facility] [id number] SP [id number] [employer] [id number] SP [id number] Workers Comp Carrier I WorkComp Health Claim [id number] [facility] nicole [id number] Needs Workers Comp Information WorkComp Health Claim [id number] Employee [id number] OTHER W.C.EMPLOYER [id number] SP 1 [id number] r Free Flow Power [id number] Self [id number] Commercial [id number] Self [id number] R [id number] S [id number] [employer] CLAIM ADMIN WORK COMP [id number] SP [id number] [facility] [id number] S [id number] [facility] Free Flow Power [id number] Self [id number] [facility] Free [employer] [id number] 023 Self [id number] SELF PAY UNAVAILABLE S UNAVAILA BLE BH UMR CO [id number] 18 [id number] [employer] [id number] 023 Self [id number] [employer] Commercial [id number] 023 Self [id number] [employer] Commercial [id number] Self [id number] [employer] Commercial [id number] 023 Self [id number] [employer] Commercial [id number] 023 Self [id number] [employer] Commercial [id number] 023 Self [id number] [employer] Commercial [id number] 023 Self [id number] UMR [facility] [id number] SP [id number] [employer] Commercial [id number] 023 Self [id number] [employer] [id number] SP [id number] [employer] [id number] SP [id number] [facility] [id number] [facility] [id number] [employer] W/C [id number] SP [id number] U[employer] CO [id number] 18 [id number] [employer] P [id number] S [id number] OTHER WORKERS COMPENSATION [id number] SP [id number] [employer]-O/P [id number] 18 [id number] [employer] SP Problems, Conditions, and Diagnoses Code Display Name Description Problem Type Effective Dates Data Source(s) Z712 Person consulting for explanation of exa mination or test findings Person consulting for explanation of examination or test findings Diagnosis 11/27/2020 09:41:00 AM EDT [facility] G22375 Other chcf (current) drug therapy O ther wet sander (current) drug therapy Diagnosis 11/27/2020 09:41:00 AM EDT [facility] M545 Low back pain Low back pain Diagnosis 11/27/2020 09:41:00 AM EDT [facility] R718 Other abnormality of red blood cells Other abnor mality of red blood cells Diagnosis 11/27/2020 09:41:00 AM EDT [facility] E785 Hyperlipidemia, unspecified Hyperlipidemia, unspecifie d Diagnosis 11/27/2020 09:41:00 AM EDT [facility] K219 Gastro-esophageal reflux disease without esophagitis Gastro-esophageal reflux disease without esophagitis Diagnosis 11/27/2020 09:41:00 AM ED T [facility] F419 Anxiety disorder, unspecified Anxiety disorder, unspec ified Diagnosis 11/27/2020 09:41:00 AM EDT [facility] Z6837 Body mass index [BMI] 37.0-37.9, adult B danish mass index [BMI] 37.0-37.9, adult Diagnosis 08/27/2020 09:13:00 AM [facility] K60.2 Anal fissure Anal fissure Problem 03/05/2021 12:00:00 A M EDT [facility] ([facility]) Surgeries/Procedures Procedure Description Date Indications Data Source(s) OFFICE OUTPATIENT VISIT 10 MINUTES 12/03/2020 12:00:00 AM EDT [facility] ([facility]) OFFICE OUTPATIENT VISIT 25 MINUTES 11/27/2020 12:00:00 AM EDT [facility] ([facility]) Brief Emotional/Behav Assessment W/ Scoring Doc Per Standard Inst 08/27/2020 12:00:00 AM EST [facility] ([facility]) Admin Patient Focused Health Risk Assessment Instrument 08/27/2020 12:00:00 AM EST [facility] ([facility]) OFFICE OUTPATIENT NEW 30 MINUTES 08/27/2020 12:00:00 A M EST [facility] ([facility]) Results ID Date Data Source [id number] 02/17/2021 11:41:00 AM EDT [facility] ([facility]) Name Value Range Interpretation Code Description Data Regina rce(s) Supporting Document(s) Hepatitis C virus Ab [Units/volume] in Serum by Immunoassay 0.1 INDEX Normal (applies to non-numeric results) [facility] ([facility]) Negative Not infected with HCV, unless recent infection is suspected or other evidence exists to indicate HCV infection. Hepatitis B virus surface Ag [Presence] in Serum or Pl asma by Immunoassay Laboratory test result Normal (applies to non-numeric results) [facility] ([facility]) Hepatitis B virus surface Ab [Presence] in Serum by Im munoassay Laboratory test result Normal (applies to non-numeric results) [facility] ([facility]) HIV 1+2 Ab [Presence] in Serum Laboratory test result Normal (applies to non- numeric results) [facility] ([facility]) <content>This assay was performed utiliz ing a chemiluminescent</content>
<content>principle technique for the simultaneous qualitative</content>
<content>detection of HIV-1 p24 antigen & antibodies to HIV-1</content>
<content>(including group O) & HIV-2 using the Siemens Centaur XP</content>
<content>system.</content>
<content>The estimated 95% confidence interval for sensitivity of</content>
<content>this antigen/antibody combination assay for HIV-1&2</content>
<content>antibodies is 99.7-100% and HIV p24 antigen is 89.4-99.9%.</content>
<content>The estimated 95% confidence interval for specificity of</content>
<content>this antigen/antibody combination in low risk populations is</content>
<content>99.6-99.8%.</content>
<content></content> ID Date Data Source [id number] 02/17/2021 11:41:00 AM EDT [facility] ([facility]) Name Value Range Interpretation Code Description Data Regina rce(s) Supporting Document(s) Glucose, Fasting 97 mg/dL 70-100 Normal (applies to non-numeric results) [facility] ([facility]) Blood Urea Nitrogen 15 mg/dL 7-18 Normal (applies to non-nume danny results) [facility] ([facility]) Creatinine For GFR 1.02 mg/dL 0.70-1.30 Normal (applies to non -numeric results) [facility] ([facility]) Glomerular Filtration Rate Laboratory test result Normal (applies to non- numeric results) [facility] ([facility]) <content>Units are mL/min/1.73 m2</content>
<content></content>
<content>Chronic Kidney Disease Staging per NKF:</content>
<content></content>
<content>Stage I & II GFR >=60 Normal to Mildly Decreased</content>
<content>Stage III GFR 30- 59 Moderately Decreased</content>
<content>Stage IV GFR 15-29 Severely Decreased</content>
<content>Stage V GFR <15 Very Little GFR Left</content>
<content>ESRD GFR <15 on DOCTOR OF AUDIOLOGY</content>
<content></content> Sodium Level 140 meq/L 136-145 Normal (applies to non-numeric res ults) [facility] ([facility]) Chloride Level 104 meq/L 98-107 Normal (applies to non-numeric r esults) [facility] ([facility]) Potassium Serum 4.1 meq/L 3.5-5.1 Normal (applies to non-numeric results) [facility] ([facility]) Carbon Dioxide Level 31 meq/L 21-32 Normal (applies to non-num neisha results) [facility] ([facility]) Calcium Level 9.6 mg/dL 8.5-10.1 Normal (applies to non-numeric re sults) [facility] ([facility]) Anion Gap 5 meq/L 8-16 Below low normal [facility] Ast/Sgot 18 U/L 7-37 Normal (applies to non-numeric resul ts) [facility] ([facility]) Alkaline Phosphatase 69 U/L 45-117 Normal (applies to non-num neisha results) [facility] ([facility]) Alt/SGPT 40 U/L 12-78 Normal (applies to non-numeric resul ts) [facility] ([facility]) Bilirubin,Total 0.8 mg/dL 0.2-1.0 Normal (applies to non-numeric results) [facility] ([facility]) Total Protein 7.8 GM/DL 6.4-8.2 Normal (applies to non-numeric re sults) [facility]) Albumin 4.3 GM/DL 3.2-5.2 Normal (applies to non-numeric resul ts) [facility] ([facility]) Albumin/Globulin Ratio 1.2 Normal (applies to non-n umeric results) [facility] ([facility]) ID Date Data Source [id number] 02/17/2021 11:41:00 AM EDT [facility] ([facility]) Name Value Range Interpretation Code Description Data Regina rce(s) Supporting Document(s) White Blood Count 6.9 10 4.0-10.0 Normal (applies to non-numeri c results) [facility] ([facility]) Red Blood Count 5.40 10 4.30-6.10 Normal (applies to non-numeric results) [facility] ([facility]) Hemoglobin 16.9 g/dL 13.5-17.5 Normal (applies to non-numeric resul ts) [facility] ([facility]) Hematocrit 48.6 % 42.0-52.0 Normal (applies to non-numeric resul ts) [facility] Mean Corpuscular Volume 90.0 fl 80.0-96.0 Normal ( applies to non-numeric results) [facility] ([facility]) Mean Corpuscular Hemoglobin 31.3 pg 27.0-33.0 Norm al (applies to non-numeric results) [facility] ([facility]) Mean Corpuscular HGB Conc 34.8 g/dL 32.0-36.5 Normal (applies to non-numeric results) [facility] ([facility]) Platelet Count, Automated 181 10 150-450 Normal (applies to non-numeric results) [facility] ([facility]) Red Cell Distribution Width 12.5 % 11.5-14.5 Norm al (applies to non-numeric results) [facility] ([facility]) Neutrophils % 67.0 % 36.0-66.0 Above high normal [facility] ([facility]) Lymph % 24.8 % 24.0-44.0 Normal (applies to non-numeric resul ts) [facility] ([facility]) Martin % 5.5 % 2.0-8.0 Normal (applies to non-numeric resul ts) [facility] ([facility]) Baso % 0.7 % 0.0-1.0 Normal (applies to non-numeric resul ts) [facility] ([facility]) Eos % 0.7 % 0.0-3.0 Normal (applies to non-numeric resul ts) [facility] ([facility]) Nucleated Red Blood Cell % 0.0 % 0-0 Normal (applies to n on-numeric results) [facility] ([facility]) Immature Granulocyte % 1.3 % 0-3.0 Normal (applies to non-n umeric results) [facility] ([facility]) Neutrophils # 4.6 10 1.5-8.5 Normal (applies to non-numeric re sults) [facility] ([facility]) Lymph # 1.7 10 1.5-5.0 Normal (applies to non-numeric resul ts) [facility] ([facility]) Martin # 0.4 10 0.0-0.8 Normal (applies to non-numeric resul ts) [facility] ([facility]) Eos # 0.1 10 0.0-0.5 Normal (applies to non-numeric resul ts) [facility] ([facility]) Baso # 0.1 10 0.0-0.2 Normal (applies to non-numeric resul ts) [facility] ([facility]) ID Date Data Source [id number] 11/27/2020 11:03:00 AM EDT [facility] ([facility]) Name Value Range Interpretation Code Description Data Regina rce(s) Supporting Document(s) CBC W/Automated Diff Laboratory test result [facility] ([facility]) COMPLETE BLOOD COUNT WBC 5.5 10^3/uL 4.2-11.0 [facility] ([facility]) RBC 6.08 10^6/uL 4.50-6.30 [facility] ([facility]) MCV 92.3 fL 80.0-94.0 [facility] ([facility]) Hemoglobin 19.1 g/dL 14.0-16.0 Above high normal [facility] ([facility]) Hematocrit 56.1 % 41.0-51.0 Above high normal [facility] ([facility]) MCH 31.4 pg 27.0-34.0 [facility] ([facility]) MCHC 34.0 g/dL 31.0-36.0 [facility] ([facility]) Platelets 277 10^3/uL 150-450 [facility] ([facility]) RDW 14.0 % 11.5-14.8 [facility] ([facility]) MPV 9.9 fL 7.4-10.4 [facility] ([facility]) Neut 50.0 % 37.0-80.0 [facility] ([facility]) Lymph 37.1 % 25.0-40.0 [facility] ([facility]) Martin 9.1 % 3.0-8.0 Above high normal [facility] ([facility]) Baso 1.3 % 0.0-2.0 [facility] ([facility]) Eos 1.8 % 0.0-7.0 [facility] ([facility]) %Ig 0.7 % 0.0-0.0 Above high normal [facility] ([facility]) %NRBC 0.0 % 0.0-0.0 [facility] ([facility]) #Neut 2.73 10^3/uL 2.00-6.90 [facility] ([facility]) #Martin 0.50 10^3/uL 0.00-0.90 [facility] ([facility]) #Lymph 2.03 10^3/uL 0.60-3.40 [facility] ([facility]) #Eos 0.10 10^3/uL 0.00-0.70 [facility] ([facility]) #Baso 0.07 10^3/uL 0.00-0.20 [facility] ([facility]) #Ig 0.04 10^3/uL 0.00-0.10 [facility] ([facility]) Manual Diff Laboratory test result M [facility] ([facility]) #NRBC 0.00 10^3/uL 0.00-0.00 [facility] ([facility]) RBC Morph Laboratory test result [facility] ([facility]) ID Date Data Source [id number] 11/27/2020 04:30:00 PM EDT [facility] Name Value Range Interpretation Code Description Data Regina rce(s) Supporting Document(s) CBC W/AUTOMATED DIFF [facility] COMPLETE BLOOD COUNT Leukocytes [#/volume] in Blood by Automated count 5.5 10^3/uL 4.2 - 1 1.0 [facility] Erythrocytes [#/volume] in Blood by Automated count 6.08 10^6/uL 4. 50 - 6.30 [facility] Hemoglobin [Mass/volume] in Blood 19.1 g/dL 14.0 - 16.0 H [facility] Hematocrit [Volume Fraction] of Blood by Automated count 56.1 % 4 1.0 - 51.0 H [facility] Erythrocyte mean corpuscular volume [Entitic volume] by Auto mated count 92.3 fL 80.0 - 94.0 [facility] Erythrocyte mean corpuscular hemoglobin [Entitic mass] by Automated count 31.4 pg 27.0 - 34.0 [facility] Erythrocyte mean corpuscular hemoglobin concentration [Mass/volume] by Automated count 34.0 g/dL 31.0 - 36.0 [facility] Erythrocyte distribution width [Ratio] by Automated count 14.0 % 11.5 - 14.8 [facility] Platelets [#/volume] in Blood by Automated count 277 10^3/uL 150 - 45 0 [facility] Platelet mean volume [Entitic volume] in Blood by Automated count 9.9 fL 7.4 - 10.4 [facility] Neutrophils/100 leukocytes in Blood by Automated count 50.0 % 37. 0 - 80.0 [facility] Lymphocytes/100 leukocytes in Blood by Manual count 37.1 % 25.0 - 40.0 [facility] Monocytes/100 leukocytes in Blood by Automated count 9.1 % 3.0 - 8.0 H [facility] Eosinophils/100 leukocytes in Blood by Automated count 1.8 % 0.0 - 7.0 [facility] Basophils/100 leukocytes in Blood by Automated count 1.3 % 0.0 - 2.0 [facility] %IG 0.7 % 0.0 - [facility].0 [facility] %[facility] 0.0 % 0.0 - 0.0 [facility] al Neutrophils [#/volume] in Blood by Automated count 2.73 10^3/uL 2.00 - 6.90 [facility] Lymphocytes [#/volume] in Blood by Automated count 2.03 10^3/uL 0.60 - 3.40 [facility] Monocytes [#/volume] in Blood by Automated count 0.50 10^3/uL 0.00 - 0.90 [facility] Eosinophils [#/volume] in Blood by Automated count 0.10 10^3/uL 0.00 - 0.70 [facility] Basophils [#/volume] in Blood by Automated count 0.07 10^3/uL 0.00 - 0.20 [facility] #IG 0.04 10^3/uL 0.00 - 0.10 [facility] #NRBC 0.00 10^3/uL 0.00 - 0.00 [facility] MANUAL DIFF NOT INDICATED [facility] RBC MORPH NOT INDICATED [facility] spital ID Date Data Source [id number] 10/08/2020 08:36:00 AM EDT [facility] ([facility]) Name Value Range Interpretation Code Description Data Regina rce(s) Supporting Document(s) Thyrotropin [Units/volume] in Serum or Plasma 0.95 uIU/mL 0.47-5.01 [facility] ([facility]) Is patient fasting? N Calcitriol [Mass/volume] in Serum or Plasma 50.6 pg/mL 19.9-79.3 [facility] ([facility]) Is patient fasting? N ID Date Data Source [id number] 10/08/2020 08:36:00 AM EDT [facility] ([facility]) Name Value Range Interpretation Code Description Data Regina rce(s) Supporting Document(s) Cve Panel Laboratory test result [facility] ([facility]) Is patient fasting? N Triglycerides 362 mg/dL 35-160 Above high normal [facility] ([facility]) Is patient fasting? N Cholesterol 195 mg/dL 131-200 MEDENT ([facility]) Is patient fasting? N HDL 17 mg/dL 29-86 Below low normal MEDENT ([facility]) Is patient fasting? N LDL 143 mg/dL 65-175 MED[facility] ([facility]) Is patient fasting? N Risk Factor 11.5 3.4-4.9 Above high normal MEDENT ([facility]) Is patient fasting? N LDL/HDL 8.41 1.00-3.55 Above high normal MEDENT ([facility]) Is patient fasting? N ID Date Data Source [id number] 10/08/2020 08:36:00 AM EDT MED[facility] ([facility]) Name Value Range Interpretation Code Description Data Regina rce(s) Supporting Document(s) Hemoglobin A1c/Hemoglobin.total in Blood 4.6 % 4.4-6.1 MED[facility] ([facility]) Is patient fasting? N ID Date Data Source [id number] 10/08/2020 08:36:00 AM EDT MED[facility] ([facility]) Name Value Range Interpretation Code Description Data Regina rce(s) Supporting Document(s) Comprehensive [employer] Laboratory test result MEDENT ([facility]) Is patient fasting? N Sodium 138 meq/L 134-153 MED[facility] ([facility]) Is patient fasting? N Potassium 4.3 meq/L 3.6-5.0 [facility] ([facility]) Is patient fasting? N Chloride 100 meq/L 98-107 [facility] ([facility]) Is patient fasting? N Co2 25 meq/L 22-30 [facility] ([facility]) Is patient fasting? N BUN 14 mg/dL 7-21 [facility] ([facility]) Is patient fasting? N Glucose 73 mg/dL 70-99 [facility] ([facility]) Is patient fasting? N Creatinine 1.0 mg/dL 0.7-1.5 MED[facility] ([facility]) Is patient fasting? N BUN/Creat 14 8-27 MED[facility] ([facility]) Is patient fasting? N Total Protein 6.8 g/dL 6.3-8.2 MED[facility] ([facility]) Is patient fasting? N Globulin 2.2 GM/DL 2.4-3.2 Below low normal MEDENT ( [facility]) Is patient fasting? N Albumin 4.6 g/dL 3.9-5.0 [facility] ([facility]) Is patient fasting? N Calcium 9.5 mg/dL 8.4-10.2 [facility] ([facility]) Is patient fasting? N A/G Ratio 2.1 0.8-2.0 Above high normal MEDENT ([facility]) Is patient fasting? N Total Bili Laboratory test result 0.2-1.3 ME DENT ([facility]) Is patient fasting? N Alkaline Phos 73 U/L 38-126 [facility] ([facility]) Is patient fasting? N Sgot/Ast 21 U/L 5-40 [facility] ([facility]) Is patient fasting? N SGPT/Alt 16 U/L 7-56 [facility] ([facility]) Is patient fasting? N Anion Gap 13.0 mmol/L 8.0-16.0 MED[facility] ([facility]) Is patient fasting? N Age 40 yrs MEDENT ([facility]) Is patient fasting? N Non-Aa GFR Laboratory test result MED[facility] ([facility]) Is patient fasting? N Afr Amer GFR Laboratory test result MED[facility] ([facility]) Is patient fasting? N ID Date Data Source [id number] 10/08/2020 08:36:00 AM EDT MED[facility] ([facility]) Name Value Range Interpretation Code Description Data Regina rce(s) Supporting Document(s) CBC W/Automated Diff Laboratory test result MED[facility] ([facility]) Is patient fasting? N WBC 4.9 10^3/uL 4.2-11.0 [facility] ([facility]) Is patient fasting? N RBC 5.49 10^6/uL 4.50-6.30 [facility] ([facility]) Is patient fasting? N Hematocrit 52.2 % 41.0-51.0 Above high normal MED[facility] ([facility]) Is patient fasting? N Hemoglobin 17.6 g/dL 14.0-16.0 Above high normal MED[facility] ([facility]) Is patient fasting? N MCV 95.1 fL 80.0-94.0 Above high normal [facility] ([facility]) Is patient fasting? N MCH 32.1 pg 27.0-34.0 [facility] ([facility]) Is patient fasting? N RDW 13.2 % 11.5-14.8 [facility] ([facility]) Is patient fasting? N MCHC 33.7 g/dL 31.0-36.0 [facility] ([facility]) Is patient fasting? N MPV 10.2 fL 7.4-10.4 [facility] ([facility]) Is patient fasting? N Platelets 233 10^3/uL 150-450 MED[facility] ([facility]) Is patient fasting? N Neut 48.9 % 37.0-80.0 [facility] ([facility]) Is patient fasting? N Lymph 38.2 % 25.0-40.0 [facility] ([facility]) Is patient fasting? N Martin 8.7 % 3.0-8.0 Above high normal MEDENT ([facility]) Is patient fasting? N Eos 2.8 % 0.0-7.0 [facility] ([facility]) Is patient fasting? N Baso 1.0 % 0.0-2.0 [facility] ([facility]) Is patient fasting? N %Ig 0.4 % 0.0-0.0 Above high normal MED[facility] ([facility]) Is patient fasting? N %NRBC 0.0 % 0.0-0.0 [facility] ([facility]) Is patient fasting? N #Neut 2.40 10^3/uL 2.00-6.90 [facility] ([facility]) Is patient fasting? N #Martin 0.43 10^3/uL 0.00-0.90 [facility] ([facility]) Is patient fasting? N #Lymph 1.88 10^3/uL 0.60-3.40 [facility] ([facility]) Is patient fasting? N #Eos 0.14 10^3/uL 0.00-0.70 [facility] ([facility]) Is patient fasting? N #Baso 0.05 10^3/uL 0.00-0.20 [facility] ([facility]) Is patient fasting? N #Ig 0.02 10^3/uL 0.00-0.10 [facility] ([facility]) Is patient fasting? N #NRBC 0.00 10^3/uL 0.00-0.00 [facility] ([facility]) Is patient fasting? N Manual Diff Laboratory test result M EDENT ([facility]) Is patient fasting? N RBC Morph Laboratory test result [facility] ([facility]) Is patient fasting? N ID Date Data Source [id number] 10/11/2020 07:47:00 PM EDT [facility] Name Value Range Interpretation Code Description Data Regina rce(s) Supporting Document(s) 1,25-Dihydroxyvitamin D [Mass/volume] in Serum or Plasma 50.6 pg/mL 19.9-79.3 [facility] ID Date Data Source [id number] 10/08/2020 06:25:00 PM EDT [facility] Name Value Range Interpretation Code Description Data Regina rce(s) Supporting Document(s) Thyrotropin [Units/volume] in Serum or Plasma by Detec tion limit <= 0.05 mIU/L 0.95 uIU/mL 0.47 - 5.01 [facility] ID Date Data Source [id number] 10/08/2020 06:18:00 PM T [facility] Name Value Range Interpretation Code Description Data Regina rce(s) Supporting Document(s) [facility] Cholesterol [Mass/volume] in Serum or Plasma 195 MG/DL 131 - 200 [facility] Deprecated Triglyceride [Mass/volume] in Serum or Plasma 362 MG/DL 3 5 - 160 H [facility] HDL 17 MG/DL 29 - [address] [facility] al Cholesterol in LDL [Mass/volume] in Serum or Plasma by Direc t assay 143 mg/dL 65 - 175 [facility] Cholesterol.total/Cholesterol in HDL [Mass Ratio] in Serum o r Plasma 11.5 3.4 - 4.9 H [facility] LDL/HDL 8.41 1.00 - 3.55 H [facility] ital CVE RISK CHOL/HDL LDL/HDLMEN: 1/2 AVERAGE 3.43 1.00 AVERAGE 4.97 3.55 2X AVERAGE 9.55 6.25 3X AVERAGE 23.99 7.99WOMEN: 1/2 AVERAGE 3.27 1.47 AVERAGE 4.44 3.22 2X AVERAGE 7.05 5.03 3X AVERAGE 11.04 6.14 ID Date Data Source [id number] 10/08/2020 06:18:00 PM T [facility] Name Value Range Interpretation Code Description Data Regina rce(s) Supporting Document(s) COMPREHENSIVE METABOLIC PANEL [facility] COMPREHENSIVE METABOLIC PANEL Sodium [Moles/volume] in Serum or Plasma 138 mEq/L 134 - 153 [facility] Potassium [Moles/volume] in Serum or Plasma 4.3 mEq/L 3.6 - 5.0 [facility] Chloride [Moles/volume] in Serum or Plasma 100 mEq/L 98 - 107 [facility] Carbon dioxide, total [Moles/volume] in Serum or Plasma 25 MEQ/L 22 - 30 [facility] Glucose [Mass/volume] in Serum or Plasma 73 MG/DL 70 - 99 [facility] BUN 14 MG/DL 7 - 21 [facility] Creatinine [Mass/volume] in Serum or Plasma 1.0 MG/DL 0.7 - 1.5 [facility] BUN/CREAT 14 8 - 27 [facility] Protein [Mass/volume] in Serum or Plasma 6.8 G/DL 6.3 - 8.2 [facility] Albumin [Mass/volume] in Serum or Plasma 4.6 G/DL 3.9 - 5.0 [facility] Globulin [Mass/volume] in Serum by calculation 2.2 GM/DL 2.4 - 3.2 L [facility] A/G RATIO 2.1 0.8 - 2.0 H [facility] Calcium [Mass/volume] in Serum or Plasma 9.5 MG/DL 8.4 - 10.2 [facility] Bilirubin.total [Mass/volume] in Serum or Plasma <0.7 MG/DL 0.2 - 1.3 [facility] Alkaline phosphatase [Enzymatic activity/volume] in Serum or Plasma 73 U/L 38 - 126 [facility] Aspartate aminotransferase [Enzymatic activity/volume] in Serum or Plasma 21 U/L 5 - 40 [facility] Alanine aminotransferase [Enzymatic activity/volume] in Seru m or Plasma 16 U/L 7 - 56 [facility] Anion gap 3 in Serum or Plasma 13.0 mmol/L 8.0 - 16.0 [facility] AGE [address] [facility] al NON-AA GFR >60 mL/min [facility] ital AFR AMER GFR >60 mL/min [facility] spital Male GFR In terprentation 20-49 yrs >60 mL/min Normal 50-59 yrs >56 mL/min Normal 60-69 yrs >49 mL/min Normal 70-79yrs >42 mL/min Normal 80 and above >35 mL/min Normal Female GFR Interpretation 20-39 yrs >60 mL/min Normal 40-49 yrs >58 mL/min Normal 50-59 yrs >51 mL/min Normal 60-69 yrs >45 mL/min Normal 70-79 yrs >39 mL/min Normal 80 and above >32 mL/min Normal ID Date Data Source [id number] 10/08/2020 06:17:00 PM EDT [facility] Name Value Range Interpretation Code Description Data Regina rce(s) Supporting Document(s) Hemoglobin A1c/Hemoglobin.total in Blood 4.6 % 4.4 - 6.1 [facility] {A1]{HB] ID Date Data Source [id number] 10/08/2020 05:44:00 PM EDT [facility] Name Value Range Interpretation Code Description Data Regina rce(s) Supporting Document(s) CBC W/AUTOMATED DIFF [facility] COMPLETE BLOOD COUNT Leukocytes [#/volume] in Blood by Automated count 4.9 10^3/uL 4.2 - 1 1.0 [facility] Erythrocytes [#/volume] in Blood by Automated count 5.49 10^6/uL 4. 50 - 6.30 [facility] Hemoglobin [Mass/volume] in Blood 17.6 g/dL 14.0 - 16.0 H [facility] Hematocrit [Volume Fraction] of Blood by Automated count 52.2 % 4 1.0 - 51.0 H [facility] Erythrocyte mean corpuscular volume [Entitic volume] by Auto mated count 95.1 fL 80.0 - 94.0 H [facility] Erythrocyte mean corpuscular hemoglobin [Entitic mass] by Automated count 32.1 pg 27.0 - 34.0 [facility] Erythrocyte mean corpuscular hemoglobin concentration [Mass/volume] by Automated count 33.7 g/dL 31.0 - 36.0 [facility] Erythrocyte distribution width [Ratio] by Automated count 13.2 % 11.5 - 14.8 [facility] Platelets [#/volume] in Blood by Automated count 233 10^3/uL 150 - 45 0 [facility] Platelet mean volume [Entitic volume] in Blood by Automated count 10.2 fL 7.4 - 10.4 [facility] Neutrophils/100 leukocytes in Blood by Automated count 48.9 % 37. 0 - 80.0 [facility] Lymphocytes/100 leukocytes in Blood by Manual count 38.2 % 25.0 - 40.0 [facility] Monocytes/100 leukocytes in Blood by Automated count 8.7 % 3.0 - 8.0 H [facility] Eosinophils/100 leukocytes in Blood by Automated count 2.8 % 0.0 - 7.0 [facility] Basophils/100 leukocytes in Blood by Automated count 1.0 % 0.0 - 2.0 [facility] %IG 0.4 % 0.0 - 0.0 H [facility] %NRBC 0.0 % 0.0 - 0.0 [facility] Neutrophils [#/volume] in Blood by Automated count 2.40 10^3/uL 2.00 - 6.90 [facility] Lymphocytes [#/volume] in Blood by Automated count 1.88 10^3/uL 0.60 - 3.40 [facility] Monocytes [#/volume] in Blood by Automated count 0.43 10^3/uL 0.00 - 0.90 [facility] Eosinophils [#/volume] in Blood by Automated count 0.14 10^3/uL 0.00 - 0.70 [facility] Basophils [#/volume] in Blood by Automated count 0.05 10^3/uL 0.00 - 0.20 [facility] #IG 0.02 10^3/uL 0.00 - 0.10 [facility] #NRBC 0.00 10^3/uL 0.00 - 0.00 [facility] MANUAL DIFF NOT INDICATED [facility] RBC MORPH NOT INDICATED [facility] ID Date Data Source [id number] 07/22/2020 12:00:00 AM EST [facility] Name Value Range Interpretation Code Description Data Regina rce(s) Supporting Document(s) SARS coronavirus 2 Ag Negative [facility] This lab was ordered by [facility] and reported by [facility]. Procedure Social History Code Duration Value Status Description Data Source(s ) Smoking 12/23/2020 12:00:00 AM EDT Patient has never smoked co mpleted Patient has never smoked MED[facility] ([facility], ) Smoking 07/05/2020 12:00:00 AM EST Patient has never smoked co mpleted Patient has never smoked [facility] ([facility]) Vital Signs ID Date Data Source UNK Name Value Range Interpretation Code Description Data Source(s) Systolic blood pressure 138 mm[Hg] 138 mm[Hg] M EDENT ([facility]) Diastolic blood pressure 88 mm[Hg] 88 mm[Hg] [facility] ([facility]) Heart rate 89 /min 89 /min [facility] ([facility]) Body temperature 98.2 [degF] 98.2 [degF] [facility] ([facility]) Respiratory rate 16 /min 16 /min [facility] ( [facility]) Oxygen saturation in Arterial blood by Pulse oximetry 100 % 100 % [facility] ([facility]) Body weight 261.00 [lb_av] 261.00 [lb_av] MEDEN T ([facility]) Body weight 118.390 kg 118.390 kg MED[facility] ([facility]) Body height 70 [in_i] 70 [in_i] MED[facility] ([facility]) 5'10" Body mass index (BMI) [Ratio] 37.4 kg/m2 37.4 k g/m2 [facility] ([facility]) Body surface area Derived from formula 2.34 m2 2.34 m2 [facility] ([facility]) Body weight 247.00 [lb_av] 247.00 [lb_av] MEDEN T ([facility], ) Systolic blood pressure 130 mm[Hg] 130 mm[Hg] M EDENT ([facility], ) Diastolic blood pressure 70 mm[Hg] 70 mm[Hg] [facility] ([facility]) Body temperature 247.0 [degF] 247.0 [degF] MEDE NT ([facility], ) Body height 70 [in_i] 70 [in_i] MEDENT ([facility]) 5'10" [place] body weight 166 [lb_av] 166 [lb_av] MEDEN T ([facility], ) Body weight 112.039 kg 112.039 kg [facility] ([facility]) Body surface area Derived from formula 2.28 m2 2.28 m2 [facility] ([facility], ) Body mass index (BMI) [Ratio] 35.4 kg/m2 35.4 k g/m2 MED[facility] ([facility], ) Heart rate 68 /min 68 /min MED[facility] ([facility], ) Oxygen saturation in Arterial blood by Pulse oximetry 95 % 95 % [facility] ([facility]) Body surface area Derived from formula 2.37 m2 2.37 m2 [facility] ([facility]) Systolic blood pressure 126 mm[Hg] 126 mm[Hg] M EDENT ([facility]) Diastolic blood pressure 82 mm[Hg] 82 mm[Hg] [facility] ([facility]) Heart rate 88 /min 88 /min [facility] ([facility]) Body temperature 97.5 [degF] 97.5 [degF] [facility] ([facility]) Respiratory rate 18 /min 18 /min MED[facility] ( [facility]) Oxygen saturation in Arterial blood by Pulse oximetry 99 % 99 % [facility] ([facility]) Body weight 268.50 [lb_av] 268.50 [lb_av] MEDEN T ([facility]) Body weight 121.792 kg 121.792 kg [facility] ([facility]) Body height 70 [in_i] 70 [in_i] MED[facility] ([facility]) 5'10" Body mass index (BMI) [Ratio] 38.5 kg/m2 38.5 k g/m2 [facility] ([facility]) Body temperature 96.9 [degF] 96.9 [degF] MED[facility] ([facility]) Body height 70 [in_i] 70 [in_i] MED[facility] ([facility] ) 5'10" Body weight 264.00 [lb_av] 264.00 [lb_av] MEDEN T ([facility] ) Body mass index (BMI) [Ratio] 37.9 kg/m2 37.9 k g/m2 [facility] ([facility] ) Body weight 261.50 [lb_av] 261.50 [lb_av] MEDEN T ([facility] ) Body height 70 [in_i] 70 [in_i] MED[facility] ([facility] ) 5'10" Body mass index (BMI) [Ratio] 37.5 kg/m2 37.5 k g/m2 [facility] ([facility] ) Body temperature 97.1 [degF] 97.1 [degF] [facility] ([facility] ) Systolic blood pressure 118 mm[Hg] 118 mm[Hg] M EDENT ([facility]) Respiratory rate 18 /min 18 /min MED[facility] ( [facility]) Oxygen saturation in Arterial blood by Pulse oximetry 99 % 99 % [facility] ([facility]) Diastolic blood pressure 72 mm[Hg] 72 mm[Hg] [facility] ([facility]) Heart rate 82 /min 82 /min [facility] ([facility]) Body weight 260.50 [lb_av] 260.50 [lb_av] MEDEN T ([facility]) Body temperature 97.4 [degF] 97.4 [degF] [facility] ([facility]) Body weight 118.163 kg 118.163 kg [facility] ([facility]) Body surface area Derived from formula 2.34 m2 2.34 m2 [facility] ([facility]) Body height 70 [in_i] 70 [in_i] [facility] ([facility]) 5'10" Body mass index (BMI) [Ratio] 37.4 kg/m2 37.4 k g/m2 MED[facility] ([facility]) Body mass index (BMI) [Ratio] 38.0 kg/m2 38.0 k g/m2 MED[facility] ([facility]) Systolic blood pressure 136 mm[Hg] 136 mm[Hg] M EDENT ([facility], [facility]) Diastolic blood pressure 97 mm[Hg] 97 mm[Hg] MED[facility] ([facility], [facility]) Heart rate 80 /min 80 /min MED[facility] ([facility], [facility]) Respiratory rate 16 /min 16 /min MED[facility] ( [facility], [facility]) Oxygen saturation in Arterial blood by Pulse oximetry 96 % 96 % MED[facility] ([facility], [facility]) Body temperature 98.1 [degF] 98.1 [degF] MEDENT ([facility], [facility]) Body weight 265.00 [lb_av] 265.00 [lb_av] LAUREL T ([facility], [facility]) Body height 70 [in_i] 70 [in_i] MEDENT ([facility]) 5'10"
--- OUTSIDE RECORDS SUMMARY | 2021-05-31 11:35 | CCD | Continuity of Care Document ---
Author Author Alvarado MAYO MD Organization Unknown Address [address] [place] [id number] Phone [phone] Care Team Providers Care Quality Process Auditor Name Role Phone Wendy Dolan AUTM [phone] Problems Active Problems Provider Date Anal fissure Nitish Mayo MD Onset: 03/05/2021 Other specified problems related to primary support group Ke alonzo Francisco LCSW Onset: 02/27/2019 Borderline personality disorder Triston Francisco LCSW Onset: 02/27/2019 Adjustment disorder Triston Francisco LCSW Onset: 02/27/2019 Social History Type Date Description Comments Sex Unknown Tobacco Use Start: Unknown Never Smoked Cigarettes Tobacco Use Start: Unknown Never Smoked Cigars Tobacco Use Start: Unknown Never Smoked A Pipe Tobacco Use Start: Unknown Current Smokeless Tobacco User, Uses Once Daily 1 can per day ETOH Use Occasionally consumes alcohol on ce a month Recreational Drug Use Former Drug User Formerly used Ecstasy regularly - IN COLLEGE, "LOTS OF IT." Formerly used Cocaine sporadically - [place] [employer], "ONCE EVERY FEW MONTHS." Formerly used Marijuana regularly - IN [employer], WEEKENDS. Tobacco Use Start: Unknown Patient has never smoked Allergies, Adverse Reactions, Alerts Active Allergies Reaction Severity Comments Date Bactrim Nausea, 03/14/2019 NKFA 03/14/2019 [employer]KE[employer] 03/14/2019 Sulfa Antibiotics Nausea 08/27/2020 Medications Active Medications SIG Qnty Indications Ordering Provide r Date Voltaren 1% Gel apply and rub in to the affected area as needed every 12 hours (Low back) 100gm Carlito Cook MD 11/27/[address] H[address] C[address] DR Part Take One Capsule By Mouth Every Day Maximum Daily Dose = 1 Tablet 90caps F41 .9 Carlito Cook MD 05/07/2020 Melatonin 5mg Tablets Sub tab by mouth every night at bedtime 30tabs Unknown 0 Hydroxyzine HCL 25mg Tablets Take One Tablet By Mouth Every 6 Hours as Needed Maximum Daily Dose = 2 Tablets 90tabs Carlito Cook MD Omeprazole 20mg Capsules DR take one capsule by mouth once daily maximum daily dose 1 capsule 90caps DAREN Ramírez-BC, PNP Naproxen 500mg Tablets Take One Tablet By Mouth Twice A Day Unknown Immunizations Description No Information Available Vital Signs Date Vital Result Comment 03/05/2021 1:20pm BP Systolic 138 mmHg BP Diastolic 88 mmHg Heart Rate 89 /min Body Temperature 98.2 F Respiratory Rate 16 /min O2 % BldC Oximetry 100 % Weight 261.00 lb Weight 118.390 kg Height 70 inches 5'10" BMI (Body Mass Index) 37.4 kg/m2 BSA (Body Surface Area) 2.34 m2 11/27/2020 9:42am BP Systolic 126 mmHg BP Diastolic 82 mmHg Heart Rate 88 /min Body Temperature 97.5 F Respiratory Rate 18 /min O2 % BldC Oximetry 99 % Weight 268.50 lb Weight 121.792 kg Height 70 inches 5'10" BMI (Body Mass Index) 38.5 kg/m2 BSA (Body Surface Area) 2.37 m2 Results Test Acquired Date Facility Test Result H/L Range Note CBC With Differential 02/17/2021 [facility] White Blood Count 6.9 10 Normal 4.0-10.0 Red Blood Count 5.40 10 Normal 4.30-6.10 Hemoglobin 16.9 g/dL Normal 13.5-17.5 Hematocrit 48.6 % Normal 42.0-52.0 Mean Corpuscular Volume 90.0 fl Normal 80.0-96.0 Mean Corpuscular Hemoglobin 31.3 pg Normal 27.0-33.0 Mean Corpuscular HGB Conc 34.8 g/dL Normal 32.0-36.5 Red Cell Distribution Width 12.5 % Normal 11.5-14.5 Platelet Count, Automated 181 10 Normal 150-450 Neutrophils % 67.0 % High 36.0-66.0 Lymph % 24.8 % Normal 24.0-44.0 Clarke % 5.5 % Normal 2.0-8.0 Eos % 0.7 % Normal 0.0-3.0 Baso % 0.7 % Normal 0.0-1.0 Immature Granulocyte % 1.3 % Normal 0-3.0 Nucleated Red Blood Cell % 0.0 % Normal 0-0 Neutrophils # 4.6 10 Normal 1.5-8.5 Lymph # 1.7 10 Normal 1.5-5.0 Clarke # 0.4 10 Normal 0.0-0.8 Eos # 0.1 10 Normal 0.0-0.5 Baso # 0.1 10 Normal 0.0-0.2 Comprehensive Metabolic Profil 02/17/2021 [facility] Glucose, Fasting 97 mg/dL Normal 70-100 Blood Urea Nitrogen 15 mg/dL Normal 7-18 Creatinine For GFR 1.02 mg/dL Normal 0.70-1.30 Glomerular Filtration Rate > 60.0 Normal >60 1 Sodium Level 140 mEq/L Normal 136-145 Potassium Serum 4.1 mEq/L Normal 3.5-5.1 Chloride Level 104 mEq/L Normal 98-107 Carbon Dioxide Level 31 mEq/L Normal 21-32 Anion Gap 5 mEq/L Low 8-16 Calcium Level 9.6 mg/dL Normal 8.5-10.1 Ast/Sgot 18 U/L Normal 7-37 Alt/SGPT 40 U/L Normal 12-78 Alkaline Phosphatase 69 U/L Normal 45-117 Bilirubin,Total 0.8 mg/dL Normal 0.2-1.0 Total Protein 7.8 GM/DL Normal 6.4-8.2 Albumin 4.3 GM/DL Normal 3.2-5.2 Albumin/Globulin Ratio 1.2 Normal Laboratory test finding 02/17/2021 [facility] Hepatitis C Virus Lisa Index 0.1 INDEX Normal <0.8 2 Hepatitis B Surface Antigen NEGATIVE Normal Negative Hepatitis B Surface Antibody NEGATIVE Normal Positive HIV 1&2 Screen Centaur NEGATIVE Normal Negative 3 CBC W/Automated Diff 11/27/2020 [facility] CBC W/Automated Diff (SEE NOTE) 4 WBC 5.5 10^3/uL 4.2 - 11.0 RBC 6.08 10^6/uL 4.50 - 6.30 Hemoglobin 19.1 g/dL High 14.0 - 16.0 Hematocrit 56.1 % High 41.0 - 51.0 MCV 92.3 fL 80.0 - 94.0 MCH 31.4 pg 27.0 - 34.0 MCHC 34.0 g/dL 31.0 - 36.0 RDW 14.0 % 11.5 - 14.8 Platelets 277 10^3/uL 150 - 450 MPV 9.9 fL 7.4 - 10.4 Neut 50.0 % 37.0 - 80.0 Lymph 37.1 % 25.0 - 40.0 Clarke 9.1 % High 3.0 - 8.0 Eos 1.8 % 0.0 - 7.0 Baso 1.3 % 0.0 - 2.0 %Ig 0.7 % High 0.0 - 0.0 %NRBC 0.0 % 0.0 - 0.0 #Neut 2.73 10^3/uL 2.00 - 6.90 #Lymph 2.03 10^3/uL 0.60 - 3.40 #Clarke 0.50 10^3/uL 0.00 - 0.90 #Eos 0.10 10^3/uL 0.00 - 0.70 #Baso 0.07 10^3/uL 0.00 - 0.20 #Ig 0.04 10^3/uL 0.00 - 0.10 #NRBC 0.00 10^3/uL 0.00 - 0.00 Manual Diff NOT INDICATED RBC Morph NOT INDICATED CBC W/Automated Diff 10/08/2020 [facility] CBC W/Automated Diff (SEE NOTE) 5, 6 WBC 4.9 10^3/uL 4.2 - 11.0 RBC 5.49 10^6/uL 4.50 - 6.30 Hemoglobin 17.6 g/dL High 14.0 - 16.0 Hematocrit 52.2 % High 41.0 - 51.0 MCV 95.1 fL High 80.0 - 94.0 MCH 32.1 pg 27.0 - 34.0 MCHC 33.7 g/dL 31.0 - 36.0 RDW 13.2 % 11.5 - 14.8 Platelets 233 10^3/uL 150 - 450 MPV 10.2 fL 7.4 - 10.4 Neut 48.9 % 37.0 - 80.0 Lymph 38.2 % 25.0 - 40.0 Clarke 8.7 % High 3.0 - 8.0 Eos 2.8 % 0.0 - 7.0 Baso 1.0 % 0.0 - 2.0 %Ig 0.4 % High 0.0 - 0.0 %NRBC 0.0 % 0.0 - 0.0 #Neut 2.40 10^3/uL 2.00 - 6.90 #Lymph 1.88 10^3/uL 0.60 - 3.40 #Clarke 0.43 10^3/uL 0.00 - 0.90 #Eos 0.14 10^3/uL 0.00 - 0.70 #Baso 0.05 10^3/uL 0.00 - 0.20 #Ig 0.02 10^3/uL 0.00 - 0.10 #NRBC 0.00 10^3/uL 0.00 - 0.00 Manual Diff NOT INDICATED RBC Morph NOT INDICATED Comprehensive Metabolic Panel 10/08/[facility] Comprehensive Metabo (SEE NOTE) 7 Sodium 138 mEq/L 134 - 153 Potassium 4.3 mEq/L 3.6 - 5.0 Chloride 100 mEq/L 98 - 107 Co2 25 mEq/L 22 - 30 Glucose 73 mg/dL 70 - 99 BUN 14 mg/dL 7 - 21 Creatinine 1.0 mg/dL 0.7 - 1.5 BUN/Creat 14 8 - 27 Total Protein 6.8 g/dL 6.3 - 8.2 Albumin 4.6 g/dL 3.9 - 5.0 Globulin 2.2 GM/DL Low 2.4 - 3.2 A/G Ratio 2.1 High 0.8 - 2.0 Calcium 9.5 mg/dL 8.4 - 10.2 Total Bili <0.7 mg/dL 0.2 - 1.3 Alkaline Phos 73 U/L 38 - 126 Sgot/Ast 21 U/L 5 - 40 SGPT/Alt 16 U/L 7 - 56 Anion Gap 13.0 mmol/L 8.0 - 16.0 Age 40 yrs Non-Aa GFR >60 mL/min Afr Amer GFR >60 mL/min 8 Laboratory test finding 10/08/2020 [facility] Hgba1c 4.6 % 4.4 - 6.1 9 Cve Panel 10/08/2020 [facility] Cve Panel (SEE NOTE) 10 Cholesterol 195 mg/dL 131 - 200 Triglycerides 362 mg/dL High 35 - 160 HDL 17 mg/dL Low 29 - 86 LDL 143 mg/dL 65 - 175 Risk Factor 11.5 High 3.4 - 4.9 LDL/HDL 8.41 High 1.00 - 3.55 11 Laboratory test finding 10/08/2020 [facility] TSH Highly Sensitive 0.95 uIU/mL 0.47 - 5.01 Vitamin D 1, 25-Dihydroxy 50.6 pg/mL 19.9-79.3 1 Units are mL/min/1.73 m2 Chronic Kidney Disease Staging per NKF: Stage I & II GFR >=60 Normal to Mildly Decreased Stage III GFR 30-59 Moderately Decreased Stage IV GFR 15-29 Severely Decreased Stage V GFR <15 Very Little GFR Left ESRD GFR <15 on [employer] 2 Negative Not infected with HCV, unless recent infection is suspected or other evidence exists to indicate HCV infection. 3 This assay was performed uti lizing a chemiluminescent principle technique for the simultaneous qualitative detection of HIV-1 p24 antigen & antibodies to HIV-1 (including group O) & HIV-2 using the [employer] system. The estimated 95% confidence interval for sensitivity of this antigen/antibody combination assay for HIV-1&2 antibodies is 99.7-100% and HIV p24 antigen is 89.4-99.9%. The estimated 95% confidence interval for specificity of this antigen/antibody combination in low risk populations is 99.6-99.8%. 4 COMPLETE BLOOD COUNT 5 Is patient fasting? N 6 COMPLETE BLOOD COUNT 7 COMPREHENSIVE METABOLIC PANE L 8 Male GFR Interprentation 20-49 yrs >60 mL/min Normal 50-59 yrs >56 mL/min Normal 60-69 yrs >49 mL/min Normal 70-79yrs >42 mL/min Normal 80 and above >35 mL/min Normal Female GFR Interpretation 20-39 yrs >60 mL/min Normal 40-49 yrs >58 mL/min Normal 50-59 yrs >51 mL/min Normal 60-69 yrs >45 mL/min Normal 70-79 yrs >39 mL/min Normal 80 and above >32 mL/min Normal 9 {A1] {HB] 10 LIPID PANEL 11 CVE RISK CHOL/HDL LDL/HDL MEN: 1/2 AVERAGE 3.43 1.00 AVERAGE 4.97 3.55 2X AVERAGE 9.55 6.25 3X AVERAGE 23.99 7.99 WOMEN: 1/2 AVERAGE 3.27 1.47 AVERAGE 4.44 3.22 2X AVERAGE 7.05 5.03 3X AVERAGE 11.04 6.14 Procedures Date Code Description Status 12/03/2020 46083 Office/Outpatient Established SF MDM 10-19 Min Completed 11/27/2020 68958 Office/Outpatient Established Mo d MDM 30-39 Min Completed Medical Devices Description No Information Available Encounters Description No Information Available Assessments Date Code Description Provider 03/05/2021 K60.2 Anal fissure, unspecified Nitish Mayo MD 12/03/2020 R71.8 Other abnormality of red blood c ells Wendy Nevills, [facility] 12/03/2020 E78.5 Hyperlipidemia, unspecified Darcy n Nevills, [facility] 12/03/2020 F41.9 Anxiety disorder, unspecified Ka radha Nevills, [facility] 12/03/2020 K21.9 Gastro-esophageal reflux disease without esophagitis Wendy Nevills, [facility] 12/03/2020 M54.5 Low back pain Wendy Nevills, [employer] 12/03/2020 Z79.899 Other [facility] (current) drug t herapy Wendy Nevills, [facility] 11/27/2020 F41.9 Anxiety disorder, unspecified Ka radha Nevills, [facility] 11/27/2020 K21.9 Gastro-esophageal reflux disease without esophagitis Wendy Nevills, [facility] 11/27/2020 E78.5 Hyperlipidemia, unspecified Darcy n Nevills, [facility] 11/27/2020 R71.8 Other abnormality of red blood c ells Wendy Nevills, [facility] 11/27/2020 M54.5 Low back pain Wendy Nevills, F [employer] 11/27/2020 Z79.899 Other terminal carman (current) drug t herapy Wendy Nevills, [facility] 11/27/2020 Z71.2 Person consulting fo r explanation of examination or test findings Wendy Nevills, [facility] 10/08/2020 Z00.01 Encounter for genera l adult medical examination with abnormal findings [facility] 10/08/2020 F41.9 [facility], [facility] 10/08/2020 Z79.899 Other terminal carman (current) drug t herapy [facility] Plan of Treatment Future Appointment(s):* 04/30/2021 10:00 am - Nitish Mayo MD at [facility] * 03/06/2021 9:15 am - [facility] at [facility] * 03/11/2021 8:40 am - AMINAH Alvarado at [facility] 03/05/2021 - Nitish Mayo MD* K60.2 Anal fissure, unspecified Functional Status Description No Information Available Mental Status Description No Information Available Referrals Refer to Reason for Referral Status Appt Date [facility] Please evaluate this pat ient with polycythemia. Most recent H&H up to 19.1& 56.1 on 11/27/2020. Thank you. Sent 12/23/[address] [place] [id number] [phone]
[2021-05-31] MEDS ORDERED: EXPOSURE KIT-ADULT 7 DAY SUPPLY PO ONE (12:25)
[2021-05-31 12:35] LABS: BASO % 0.6 % (0.0-1.0); EOS # 0.1 10^3/uL (0.0-0.5); EOS % 0.8 % (0.0-3.0); HEMATOCRIT 48.9 % (42.0-52.0); HEMOGLOBIN 17.1 g/dl (13.5-17.5); LYMPH # 2.3 10^3/uL (1.5-5.0); LYMPH % 35.1 % (24.0-44.0); MEAN CORPUSCULAR HEMOGLOBIN 30.1 pg (27.0-33.0); MEAN CORPUSCULAR VOLUME 86.1 fl (80.0-96.0); MONO # 0.4 10^3/uL (0.0-0.8); MONO % 5.7 % (2.0-8.0); NEUTROPHILS # 3.7 10^3/uL (1.5-8.5); NEUTROPHILS % 57.5 % (36.0-66.0); PLATELET COUNT, AUTOMATED 246 10^3/uL (150-450); RED BLOOD COUNT 5.68 10^6/uL (4.30-6.10); WHITE BLOOD COUNT 6.5 10^3/uL (4.0-10.0)
[2021-05-31] MEDS ORDERED: HEPATITIS B IMMUNE GLOBULIN 5ML INJ IM ONE (12:35)
[2021-05-31] MEDS ORDERED: HEPATITIS B VACCINE 20MCG/ML 1ML SYRINGE (ADULT DOSE) IM ONE (12:35)
--- OUTSIDE RECORDS SUMMARY | 2021-05-31 12:42 | CCD ---
Author Author [facility] Organization [facility] Address Unknown Phone Unavailable Care Team Providers Care Trauma Coordinator Name Role Phone Radha, L Emely MANAGER [employer]IANCE Unavailable Unavailable Radha, L Emely MANAGER [employer]IANCE Unavailable Unavailable Radha, L Emely MANAGER ALLIANCE Unavailable Unavailable Radha, L Emely MANAGER ALLIANCE Unavailable Unavailable Radha, L Emely MANAGER ALLIANCE Unavailable Unavailable Radha, L Emely MANAGER ALLIANCE Unavailable Unavailable Radha, L Emely MANAGER ALLIANCE Unavailable Unavailable Radha, L Emely MANAGER ALLIANCE Unavailable Unavailable Radha, L Emely MANAGER ALLIANCE Unavailable Unavailable Radha, L Emely MANAGER ALLIANCE Unavailable Unavailable Radha, L Emely MANAGER ALLIANCE Unavailable Unavailable Radha, L Emely MANAGER ALLIANCE Unavailable Unavailable Radha, L Emely MANAGER ALLIANCE Unavailable Unavailable Radha, L Emely MANAGER ALLIANCE Unavailable Unavailable Radha, L Emely MANAGER ALLIANCE Unavailable Unavailable Radha, L Emely MANAGER ALLIANCE Unavailable Unavailable Radha, L Emely MANAGER ALLIANCE Unavailable Unavailable Radha, L Emely MANAGER ALLIANCE Unavailable Unavailable Radha, L Emely MANAGER ALLIANCE Unavailable Unavailable Radha, L Emely MANAGER ALLIANCE Unavailable Unavailable Radha, L Emely MANAGER ALLIANCE Unavailable Unavailable Radha, L Emely MANAGER ALLIANCE Unavailable Unavailable Radha, L Emely MANAGER ALLIANCE Unavailable Unavailable Radha, L Emely MANAGER ALLIANCE Unavailable Unavailable Radha, L Emely MANAGER ALLIANCE Unavailable Unavailable LETTIERE, A MIRNA PA Unavailable Unavailable LETTIERE, A MIRNA PA Unavailable Unavailable LETTIERE, A MIRNA PA Unavailable Unavailable LETTIERE, A MIRNA PA Unavailable Unavailable LETTIERE, A MIRNA PA Unavailable Unavailable LETTIERE, A MIRNA PA Unavailable Unavailable LETTIERE, A MIRNA PA Unavailable Unavailable LETTIERE, A MIRNA PA Unavailable Unavailable LETTIERE, A MIRNA PA Unavailable Unavailable LETTIERE, A MRINA PA Unavailable Unavailable LETTIERE, A MIRNA PA [...] MIRNA PA Unavailable Unavailable Nevills, C Wendy MANAGER ALLIANCE Unavailable Unavailable Nevills, C Wendy MANAGER ALLIANCE Unavailable Unavailable Nevills, C Wendy MANAGER ALLIANCE Unavailable Unavailable Nevills, C Wendy MANAGER ALLIANCE Unavailable Unavailable Nevills, C Wendy MANAGER ALLIANCE Unavailable Unavailable Nevills, C Wendy MANAGER ALLIANCE Unavailable Unavailable Nevills, C Wendy MANAGER ALLIANCE Unavailable Unavailable Nevills, C Wendy MANAGER ALLIANCE Unavailable Unavailable Nevills, C Wendy MANAGER ALLIANCE Unavailable Unavailable Nevills, C Wendy MANAGER ALLIANCE Unavailable Unavailable Nevills, C Wendy MANAGER ALLIANCE Unavailable Unavailable Nevills, C Wendy MANAGER ALLIANCE Unavailable Unavailable Nevills, C Wendy MANAGER ALLIANCE Unavailable Unavailable Nevills, C Wendy MANAGER ALLIANCE Unavailable Unavailable Nevills, C Wendy MANAGER ALLIANCE Unavailable Unavailable Nevills, C Wendy MANAGER ALLIANCE Unavailable Unavailable Nevills, C Wendy MANAGER ALLIANCE Unavailable Unavailable Nevills, C Wendy MANAGER ALLIANCE Unavailable Unavailable Nevills, C Wendy MANAGER ALLIANCE Unavailable Unavailable Nevills, C Wendy MANAGER ALLIANCE Unavailable Unavailable Nevills, C Wendy MANAGER ALLIANCE Unavailable Unavailable Nevills, C Wendy MANAGER ALLIANCE Unavailable Unavailable Nevills, C Wendy MANAGER ALLIANCE Unavailable Unavailable Nevills, C Wendy MANAGER ALLIANCE Unavailable Unavailable Nevills, C Wendy MANAGER ALLIANCE Unavailable Unavailable Nevills, C Wendy MANAGER ALLIANCE Unavailable Unavailable Nevills, C Wendy MANAGER ALLIANCE Unavailable Unavailable Nevills, C Wendy MANAGER ALLIANCE Unavailable Unavailable Nevills, C Wendy MANAGER ALLIANCE Unavailable Unavailable Nevills, C Wendy MANAGER ALLIANCE Unavailable Unavailable Nevills, C Wendy MANAGER ALLIANCE Unavailable Unavailable Nevills, C Wendy MANAGER ALLIANCE Unavailable Unavailable Nevills, C Wendy MANAGER ALLIANCE Unavailable Unavailable Nevills, C Wendy MANAGER ALLIANCE Unavailable Unavailable Rubio, Rashel Priest MD Unavailable Unavailable Rubio, Rashel Priest MD Unavailable Unavailable Rubio, Rashel Priest MD Unavailable Unavailable Rubio, Rashel Priest MD Unavailable Unavailable Rubio, Rashel Priest MD Unavailable Unavailable Rubio, Rashel Priest MD Unavailable Unavailable Rubio, Rashel Priest MD Unavailable Unavailable Rubio, Rahsel Priest MD Unavailable Unavailable Rubio, Rashel Priest MD Unavailable Unavailable Rubio, Rasehl Priest MD Unavailable Unavailable Rubio, Rashel Priest [...] Karina PA Unavailable Unavailable Nevills, C Wendy MANAGER ALLIANCE Unavailable Unavailable Nevills, C Wendy MANAGER ALLIANCE Unavailable Unavailable Nevills, C Wendy MANAGER ALLIANCE Unavailable Unavailable Nevills, C Wendy MANAGER ALLIANCE Unavailable Unavailable Nevills, C Wendy MANAGER ALLIANCE Unavailable Unavailable Nevills, C Wendy MANAGER ALLIANCE Unavailable Unavailable Nevills, C Wendy MANAGER ALLIANCE Unavailable Unavailable Nevills, C Wendy MANAGER ALLIANCE Unavailable Unavailable Nevills, C Wendy MANAGER ALLIANCE Unavailable Unavailable Nevills, C Wendy MANAGER ALLIANCE Unavailable Unavailable Nevills, C Wendy MANAGER ALLIANCE Unavailable Unavailable Nevills, C Wendy MANAGER ALLIANCE Unavailable Unavailable Nevills, C Wendy MANAGER ALLIANCE Unavailable Unavailable Nevills, C Wendy MANAGER ALLIANCE Unavailable Unavailable Nevills, C Wendy MANAGER ALLIANCE Unavailable Unavailable Nevills, C Wendy MANAGER ALLIANCE Unavailable Unavailable Nevills, C Wendy MANAGER ALLIANCE Unavailable Unavailable Nevills, C Wendy MANAGER ALLIANCE Unavailable Unavailable Nevills, C Wendy MANAGER ALLIANCE Unavailable Unavailable Nevills, C Wendy MANAGER ALLIANCE Unavailable Unavailable Nevills, C Wendy MANAGER ALLIANCE Unavailable Unavailable Nevills, C Wendy MANAGER ALLIANCE Unavailable Unavailable Nevills, C Wendy MANAGER ALLIANCE Unavailable Unavailable Nevills, C Wendy MANAGER ALLIANCE Unavailable Unavailable Nevills, C Wendy MANAGER ALLIANCE Unavailable Unavailable Nevills, C Wendy MANAGER ALLIANCE Unavailable Unavailable Nevills, C Wendy MANAGER ALLIANCE Unavailable Unavailable Nevills, C Wendy MANAGER ALLIANCE Unavailable Unavailable Nevills, C Wendy MANAGER ALLIANCE Unavailable Unavailable Nevills, C Wendy MANAGER ALLIANCE Unavailable Unavailable Nevills, C Wendy MANAGER ALLIANCE Unavailable Unavailable Nevills, C Wendy MANAGER ALLIANCE Unavailable Unavailable Nevills, C Wendy MANAGER ALLIANCE Unavailable Unavailable Nevills, C Wendy MANAGER ALLIANCE Unavailable Unavailable Crow Apodaca PA Unavailable Unavailable [...] is protected by Article 27-F of the [facility] Public Health law. If you continue you may have access to information: Regarding HIV / AIDS; Provided by facilities licensed or operated by the [facility] Office of Mental Health; or Provided by the [facility] Office for People With Developmental Disabilities. If such information is present, then the following [facility] mandated warning applies: This information has [...] law may result in a fine or assisted sentence or both. A general authorization for [...] PM EDT - 03/05/2021 01:08:[address] [facility] Outpatient Attender: Emely Layton/Leanne/Taye/Sherry 12/23/2020 01:00:00 PM EDT [facility] ([facility] Outpatient Attender: Wendy Dolan NPConsultant: Karina INTERIANO 12/03/2020 08:25:00 AM EDT - 12/03/2020 08:25:[address] [facility] Outpatient Attender: Wendy Dolan NPConsultant: Karina INTERIANO 11/27/2020 09:41:00 AM EDT - 11/27/2020 09:41:[address] [facility] Outpatient Attender: Wendy Dolan NP Family Practice 11/27 09:40:00 AM EDT [facility] ([facility]) Outpatient Attender: Trevor INTERIANO Physical Therapy 02:00:00 PM EDT [facility] ([facility]) Outpatient Attender: Dale Arroyo PA-C 10/27/2020 04:38:26 PM EDT - 10/27/2020 07:17:30 PM EDT [facility] ([facility]) Outpatient Attender: Cem Rubio MD Physical Therapy 10/24/2020 0 3:15:00 PM EDT [facility] ([facility]) Outpatient Attender: Melissa Jin ANP-BCA ttender: Wendy Dolan NPConsultant: Karina INTERIANO 10/08/2020 08:28:00 AM EDT - 10/08/2020 08:28 :[address] [facility] Outpatient Attender: Melissa Jin ANP-BCConsultant: Karina INTERIANO 08/27/2020 09:13:00 AM EST - 08/27/2020 09:13:[address] [facility] Outpatient Attender: MIRNA Bach aletha 07/05/2020 07:20:00 AM EST [facility] ([facility]) Outpatient Attender: LAURYN SANDOVAL PAConsultant: Karina INTERIANO 05/07/2020 03:26:00 PM EDT - 05/07/2020 03:26:[address] [facility] Outpatient Attender: LAURYN INTERIANO Family Practice 05/07 03:20:00 PM EDT [facility] ([facility]) Medications Medication Brand [...] Voltaren 11/27/2020 12:00:00 AM EDT active [facility] ([facility]) 500 mg 10/25/2020 12:00:00 AM EDT tablet 60 TAKE ONE TABLET BY MOUTH TWICE A DAY TAKE ONE TABLET BY MOUTH TWICE A DAY SOLD: 11/01/2020 [facility] Naproxen 500 MG Oral Tablet [Naprosyn] Naprosyn 10/24/2020 12:00:00 AM EDT ORAL active [facility] ([facility] 600 mg 10/14/2020 [...] HCL 05/07/2020 12:00:00 AM EDT active [facility] ([facility]) Melatonin 5 MG Sublingual Tablet Melatonin 05/07/2020 12:00:00 AM EDT ORAL active [facility] ([facility]) 20 mg 12/26/2019 12:00:00 AM EDT [...] type / Coverage type Policy ID Covered constitution party ID Covered constitution party's relationship to farr Policy Farr Plan Information [facility] [id number] Self [id number] R [id number] S [id number] [facility] [id number] S [id number] [facility] [id number] SP [id number] [facility] [id number] SP [id number] [employer] [id number] SP [id number] Workers Comp Carrier I WorkComp Health Claim [id number] [facility] nicole [id number] Needs Workers Comp Information WorkComp Health Claim [id number] Employee [id number] OTHER W.C.EMPLOYER [id number] SP 1 [id number] r [employer] [id number] Self [id number] r Commercial [id number] Self [id number] R [id number] S [id number] [employer] CLAIM ADMIN WORK COMP [id number] SP [id number] [facility] [id number] S [id number] [facility] [employer] [id number] 023 Self [id number] [facility] [employer] [id number] 023 Self [id number] SELF PAY UNAVAILABLE S UNAVAILA BLE BH [employer] CO [id number] 18 [id number] [employer] [id number] 023 Self [id number] [employer] [id number] 023 Self [id number] [employer] [id number] Self [id number] [employer] [id number] 023 Self [id number] [employer] [id number] 023 Self [id number] [employer] [id number] 023 Self [id number] [employer] [id number] 023 Self [id number] [employer] [facility] [id number] SP [id number] [employer] [id number] 023 Self [id number] [employer] [id number] SP [id number] [employer] [id number] SP [id number] [facility] [id number] [facility] [id number] [employer] W/C [id number] SP [id number] [employer] [id number] 18 [id number] [employer] P [id number] S [id number] OTHER WORKERS COMPENSATION [id number] SP [id number] [employer]-O/P [id number] 18 [id number] [employer] COMP SP Problems, Conditions, and Diagnoses Code Display Name Description Problem Type Effective Dates Data Source(s) Z712 Person consulting for explanation of exa mination or test findings Person consulting for explanation of examination or test findings Diagnosis 11/27/2020 09:41:[address] [facility] [id number] Other shelter (current) drug therapy O ther rn long term care (current) drug therapy Diagnosis 11/27/2020 09:41:[address] [facility] M545 Low back pain Low back pain Diagnosis 11/27/2020 09:41:[address] [facility] R718 Other abnormality of red blood cells Other abnor mality of red blood cells Diagnosis 11/27/2020 09:41:[address] [facility] E785 Hyperlipidemia, unspecified Hyperlipidemia, unspecifie d Diagnosis 11/27/2020 09:41:[address] [facility] K219 Gastro-esophageal reflux disease without esophagitis Gastro-esophageal reflux disease without esophagitis Diagnosis 11/27/2020 09:41:[address] [facility] F419 Anxiety disorder, unspecified Anxiety disorder, unspec ified Diagnosis 11/27/2020 09:41:[address] [facility] Z6837 Body mass index [BMI] 37.0-37.9, adult B danish mass index [BMI] 37.0-37.9, adult Diagnosis 08/27/2020 09:13:00 AM [facility] K60.2 Anal fissure Anal fissure Problem 03/05/2021 12:00:00 A M EDT [facility] ([facility]) Surgeries/Procedures Procedure Description Date Indications Data Source(s) OFFICE OUTPATIENT VISIT 10 MINUTES 12/03/2020 12:00:00 AM EDT [facility] ([facility]) OFFICE OUTPATIENT VISIT 25 MINUTES 11/27/2020 12:00:00 AM EDT [facility] ([facility]) Brief Emotional/Behav Assessment W/ Scoring Doc Per Standard Inst 08/27/2020 12:00:00 AM EST [facility] ([facility]) Admin Patient Focused Health Risk Assessment Instrument 08/27/2020 12:00:00 AM EST [facility] ([facility]) OFFICE OUTPATIENT NEW 30 MINUTES 08/27/2020 12:00:00 A M EST [facility] ([facility]) Results ID Date Data Source [id number] 02/17/2021 11:41:00 AM EDT [facility] ([facility]) Name Value Range Interpretation Code Description Data Regina rce(s) Supporting Document(s) Hepatitis C virus Ab [Units/volume] in Serum by Immunoassay 0.1 INDEX Normal (applies to non-numeric results) [facility] ([facility]) Negative Not infected with HCV, unless recent infection is suspected or other evidence exists to indicate HCV infection. Hepatitis B virus surface Ag [Presence] in Serum or Pl asma by Immunoassay Laboratory test result Normal (applies to non-numeric results) [facility] ([facility]) Hepatitis B virus surface Ab [Presence] in Serum by Im munoassay Laboratory test result Normal (applies to non-numeric results) [facility] ([facility]) HIV 1+2 Ab [Presence] in Serum Laboratory test result Normal (applies to non- numeric results) [facility] ([facility]) <content>This assay was performed utiliz ing [...] is</content>
<content>99.6-99.8%.</content>
<content></content> ID Date Data Source [id number] 02/17/2021 11:41:00 AM EDT [facility] ([facility]) Name Value Range Interpretation Code Description Data Regina rce(s) Supporting Document(s) Glucose, Fasting 97 mg/dL 70-100 Normal (applies to non-numeric results) [facility] ([facility]) Blood Urea Nitrogen 15 mg/dL 7-18 Normal (applies to non-nume danny results) [facility] ([facility]) Creatinine For GFR 1.02 mg/dL 0.70-1.30 Normal (applies to non -numeric results) [facility] ([facility]) Glomerular Filtration Rate Laboratory test result Normal (applies to non- numeric results) [facility] ([facility]) <content>Units are mL/min/1.73 m2</content>
<content></content>
<content>Chronic Kidney Disease Staging per NKF:</content>
<content></content>
<content>Stage I & II GFR >=60 Normal to Mildly Decreased</content>
<content>Stage III GFR 30- 59 Moderately Decreased</content>
<content>Stage IV GFR 15-29 Severely Decreased</content>
<content>Stage V GFR <15 Very Little GFR Left</content>
<content>ESRD GFR <15 on TENNIS PROFESSIONAL</content>
<content></content> Sodium Level 140 meq/L 136-145 Normal (applies to non-numeric res ults) [facility] ([facility]) Chloride Level 104 meq/L 98-107 Normal (applies to non-numeric r esults) [facility] ([facility]) Potassium Serum 4.1 meq/L 3.5-5.1 Normal (applies to non-numeric results) [facility] ([facility]) Carbon Dioxide Level 31 meq/L 21-32 Normal (applies to non-num neisha results) [facility] ([facility]) Calcium Level 9.6 mg/dL 8.5-10.1 Normal (applies to non-numeric re sults) [facility] ([facility]) Anion Gap 5 meq/L 8-16 Below low [facility] Ast/Sgot 18 U/L 7-37 Normal (applies to non-numeric resul ts) [facility] ([facility]) Alkaline Phosphatase 69 U/L 45-117 Normal (applies to non-num neisha results) [facility] ([facility]) Alt/SGPT 40 U/L 12-78 Normal (applies to non-numeric resul ts) [facility] ([facility]) Bilirubin,Total 0.8 mg/dL 0.2-1.0 Normal (applies to non-numeric results) [facility] ([facility]) Total Protein 7.8 GM/DL 6.4-8.2 Normal (applies to non-numeric re sults) [facility]) Albumin 4.3 GM/DL 3.2-5.2 Normal (applies to non-numeric resul ts) [facility] ([facility]) Albumin/Globulin Ratio 1.2 Normal (applies to non-n umeric results) [facility] ([facility]) ID Date Data Source [id number] 02/17/2021 11:41:00 AM EDT [facility] ([facility]) Name Value Range Interpretation Code Description Data Regina rce(s) Supporting Document(s) White Blood Count 6.9 10 4.0-10.0 Normal (applies to non-numeri c results) [facility] ([facility]) Red Blood Count 5.40 10 4.30-6.10 Normal (applies to non-numeric results) [facility] ([facility]) Hemoglobin 16.9 g/dL 13.5-17.5 Normal (applies to non-numeric resul ts) [facility] ([facility]) Hematocrit 48.6 % 42.0-52.0 Normal (applies to non-numeric resul ts) [facility] Mean Corpuscular Volume 90.0 fl 80.0-96.0 Normal ( applies to non-numeric results) [facility] ([facility]) Mean Corpuscular Hemoglobin 31.3 pg 27.0-33.0 Norm al (applies to non-numeric results) [facility] ([facility]) Mean Corpuscular HGB Conc 34.8 g/dL 32.0-36.5 Normal (applies to non-numeric results) [facility] ([facility]) Platelet Count, Automated 181 10 150-450 Normal (applies to non-numeric results) [facility] ([facility]) Red Cell Distribution Width 12.5 % 11.5-14.5 Norm al (applies to non-numeric results) [facility] ([facility]) Neutrophils % 67.0 % 36.0-66.0 Above high normal [facility] ([facility]) Lymph % 24.8 % 24.0-44.0 Normal (applies to non-numeric resul ts) [facility] ([facility]) Stephenson % 5.5 % 2.0-8.0 Normal (applies to non-numeric resul ts) [facility] ([facility]) Baso % 0.7 % 0.0-1.0 Normal (applies to non-numeric resul ts) [facility] ([facility]) Eos % 0.7 % 0.0-3.0 Normal (applies to non-numeric resul ts) [facility] ([facility]) Nucleated Red Blood Cell % 0.0 % 0-0 Normal (applies to n on-numeric results) [facility] ([facility]) Immature Granulocyte % 1.3 % 0-3.0 Normal (applies to non-n umeric results) [facility] ([facility]) Neutrophils # 4.6 10 1.5-8.5 Normal (applies to non-numeric re sults) [facility] ([facility]) Lymph # 1.7 10 1.5-5.0 Normal (applies to non-numeric resul ts) [facility] ([facility]) Stephenson # 0.4 10 0.0-0.8 Normal (applies to non-numeric resul ts) [facility] ([facility]) Eos # 0.1 10 0.0-0.5 Normal (applies to non-numeric resul ts) [facility] ([facility]) Baso # 0.1 10 0.0-0.2 Normal (applies to non-numeric resul ts) [facility] ([facility]) ID Date Data Source [id number] 11/27/2020 11:03:00 AM EDT [facility] ([facility]) Name Value Range Interpretation Code Description Data Regina rce(s) Supporting Document(s) CBC W/Automated Diff Laboratory test result [facility] ([facility]) COMPLETE BLOOD COUNT WBC 5.5 10^3/uL 4.2-11.0 [facility] ([facility]) RBC 6.08 10^6/uL 4.50-6.30 [facility] ([facility]) MCV 92.3 fL 80.0-94.0 [facility] ([facility]) Hemoglobin 19.1 g/dL 14.0-16.0 Above high normal [facility] ([facility]) Hematocrit 56.1 % 41.0-51.0 Above high normal [facility] ([facility]) MCH 31.4 pg 27.0-34.0 [facility] ([facility]) MCHC 34.0 g/dL 31.0-36.0 [facility] ([facility]) Platelets 277 10^3/uL 150-450 [facility] ([facility]) RDW 14.0 % 11.5-14.8 [facility] ([facility]) MPV 9.9 fL 7.4-10.4 [facility] ([facility]) Neut 50.0 % 37.0-80.0 [facility] ([facility]) Lymph 37.1 % 25.0-40.0 [facility] ([facility]) Stephenson 9.1 % 3.0-8.0 Above high normal [facility] ([facility]) Baso 1.3 % 0.0-2.0 [facility] ([facility]) Eos 1.8 % 0.0-7.0 [facility] ([facility]) %Ig 0.7 % 0.0-0.0 Above high normal [facility] ([facility]) %NRBC 0.0 % 0.0-0.0 [facility] ([facility]) #Neut 2.73 10^3/uL 2.00-6.90 [facility] ([facility]) #Stephenson 0.50 10^3/uL 0.00-0.90 [facility] ([facility]) #Lymph 2.03 10^3/uL 0.60-3.40 [facility] ([facility]) #Eos 0.10 10^3/uL 0.00-0.70 [facility] ([facility]) #Baso 0.07 10^3/uL 0.00-0.20 [facility] ([facility]) #Ig 0.04 10^3/uL 0.00-0.10 [facility] ([facility]) Manual Diff Laboratory test result M [facility] ([facility]) #NRBC 0.00 10^3/uL 0.00-0.00 [facility] ([facility]) RBC Morph Laboratory test result [facility] ([facility]) ID Date Data Source [id number] 11/27/2020 04:30:[address] [facility] Name Value Range Interpretation Code Description Data Regina rce(s) Supporting Document(s) CBC W/AUTOMATED DIFF [facility] COMPLETE BLOOD COUNT Leukocytes [#/volume] in Blood by Automated count 5.5 10^3/uL 4.2 - [address] [facility] Erythrocytes [#/volume] in Blood by Automated count 6.08 10^6/uL 4. 50 - 6.30 [facility] Hemoglobin [Mass/volume] in Blood 19.1 g/dL 14.0 - 16.[address] [facility] Hematocrit [Volume Fraction] of Blood by Automated count 56.1 % 4 1.0 - 51.[address] [facility] Erythrocyte mean corpuscular volume [Entitic volume] by Auto mated count 92.3 fL 80.0 - 94.0 [facility] Erythrocyte mean corpuscular hemoglobin [Entitic mass] by Automated count 31.4 pg 27.0 - 34.0 [facility] Erythrocyte mean corpuscular hemoglobin concentration [Mass/volume] by Automated count 34.0 g/dL 31.0 - 36.0 [facility] Erythrocyte distribution width [Ratio] by Automated count 14.0 % 11.5 - 14.8 [facility] Platelets [#/volume] in Blood by Automated count 277 10^3/uL 150 - [address] [facility] Platelet mean volume [Entitic volume] in Blood by Automated count 9.9 fL 7.4 - 10.4 [facility] Neutrophils/100 leukocytes in Blood by Automated count 50.0 % 37. 0 - 80.0 [facility] Lymphocytes/100 leukocytes in Blood by Manual count 37.1 % 25.0 - 40.0 [facility] Monocytes/100 leukocytes in Blood by Automated count 9.1 % 3.0 - 8.[address] [facility] Eosinophils/100 leukocytes in Blood by Automated count 1.8 % 0.0 - 7.0 [facility] Basophils/100 leukocytes in Blood by Automated count 1.3 % 0.0 - 2.0 [facility] %IG 0.7 % 0.0 - 0.0 [facility] 0.0 % 0.0 - 0.0 [facility] al Neutrophils [#/volume] in Blood by Automated count 2.73 10^3/uL 2.00 - 6.90 [facility] Lymphocytes [#/volume] in Blood by Automated count 2.03 10^3/uL 0.60 - 3.40 [facility] Monocytes [#/volume] in Blood by Automated count 0.50 10^3/uL 0.00 - 0.90 [facility] Eosinophils [#/volume] in Blood by Automated count 0.10 10^3/uL 0.00 - 0.70 [facility] Basophils [#/volume] in Blood by Automated count 0.07 10^3/uL 0.00 - 0.20 [facility] #IG 0.04 10^3/uL 0.00 - 0.10 [facility] ospital #NRBC 0.00 10^3/uL 0.00 - 0.00 [facility] ospital MANUAL DIFF NOT INDICATED [facility] RBC MORPH NOT INDICATED [facility] spital ID Date Data Source [id number] 10/08/2020 08:36:00 AM EDT [facility] ([facility]) Name Value Range Interpretation Code Description Data Regina rce(s) Supporting Document(s) Thyrotropin [Units/volume] in Serum or Plasma 0.95 uIU/mL 0.47-5.01 [facility] ([facility]) Is patient fasting? N Calcitriol [Mass/volume] in Serum or Plasma 50.6 pg/mL 19.9-79.3 [facility] ([facility]) Is patient fasting? N ID Date Data Source [id number] 10/08/2020 08:36:00 AM EDT [facility] ([facility]) Name Value Range Interpretation Code Description Data Regina rce(s) Supporting Document(s) Cve Panel Laboratory test result [facility] ([facility]) Is patient fasting? N Triglycerides 362 mg/dL 35-160 Above high normal MEDE NT ([facility]) Is patient fasting? N Cholesterol 195 mg/dL 131-200 [facility] ([facility]) Is patient fasting? N HDL 17 mg/dL 29-86 Below low normal [facility] ([facility]) Is patient fasting? N LDL 143 mg/dL 65-175 [facility] ([facility]) Is patient fasting? N Risk Factor 11.5 3.4-4.9 Above high normal [facility] ([facility]) Is patient fasting? N LDL/HDL 8.41 1.00-3.55 Above high normal [facility] ([facility]) Is patient fasting? N ID Date Data Source [id number] 10/08/2020 08:36:00 AM EDT [facility] ([facility]) Name Value Range Interpretation Code Description Data Regina rce(s) Supporting Document(s) Hemoglobin A1c/Hemoglobin.total in Blood 4.6 % 4.4-6.1 [facility] ([facility]) Is patient fasting? N ID Date Data Source [id number] 10/08/2020 08:36:00 AM EDT [facility] ([facility]) Name Value Range Interpretation Code Description Data Regina rce(s) Supporting Document(s) Comprehensive Metabo Laboratory test result [facility] ([facility]) Is patient fasting? N Sodium 138 meq/L 134-153 [facility] ([facility]) Is patient fasting? N Potassium 4.3 meq/L 3.6-5.0 [facility] ([facility]) Is patient fasting? N Chloride 100 meq/L 98-107 [facility] ([facility]) Is patient fasting? N Co2 25 meq/L 22-30 [facility] ([facility]) Is patient fasting? N BUN 14 mg/dL 7-21 [facility] ([facility]) Is patient fasting? N Glucose 73 mg/dL 70-99 [facility] ([facility]) Is patient fasting? N Creatinine 1.0 mg/dL 0.7-1.5 [facility] ([facility]) Is patient fasting? N BUN/Creat 14 8-27 [facility] ([facility]) Is patient fasting? N Total Protein 6.8 g/dL 6.3-8.2 [facility] ([facility]) Is patient fasting? N Globulin 2.2 GM/DL 2.4-3.2 Below low normal [facility] ( [facility]) Is patient fasting? N Albumin 4.6 g/dL 3.9-5.0 [facility] ([facility]) Is patient fasting? N Calcium 9.5 mg/dL 8.4-10.2 [facility] ([facility]) Is patient fasting? N A/G Ratio 2.1 0.8-2.0 Above high normal [facility] ([facility]) Is patient fasting? N Total Bili Laboratory test result 0.2-1.3 ME DENT ([facility]) Is patient fasting? N Alkaline Phos 73 U/L 38-126 [facility] ([facility]) Is patient fasting? N Sgot/Ast 21 U/L 5-40 [facility] ([facility]) Is patient fasting? N SGPT/Alt 16 U/L 7-56 [facility] ([facility]) Is patient fasting? N Anion Gap 13.0 mmol/L 8.0-16.0 [facility] ([facility]) Is patient fasting? N Age 40 yrs [facility] ([facility]) Is patient fasting? N Non-Aa GFR Laboratory test result [facility] ([facility]) Is patient fasting? N Afr Amer GFR Laboratory test result [facility] ([facility]) Is patient fasting? N ID Date Data Source [id number] 10/08/2020 08:36:00 AM EDT [facility] ([facility]) Name Value Range Interpretation Code Description Data Regina rce(s) Supporting Document(s) CBC W/Automated Diff Laboratory test result [facility] ([facility]) Is patient fasting? N WBC 4.9 10^3/uL 4.2-11.0 [facility] ([facility]) Is patient fasting? N RBC 5.49 10^6/uL 4.50-6.30 [facility] ([facility]) Is patient fasting? N Hematocrit 52.2 % 41.0-51.0 Above high normal [facility] ([facility]) Is patient fasting? N Hemoglobin 17.6 g/dL 14.0-16.0 Above high normal [facility] ([facility]) Is patient fasting? N MCV 95.1 fL 80.0-94.0 Above high normal [facility] ([facility]) Is patient fasting? N MCH 32.1 pg 27.0-34.0 [facility] ([facility]) Is patient fasting? N RDW 13.2 % 11.5-14.8 [facility] ([facility]) Is patient fasting? N MCHC 33.7 g/dL 31.0-36.0 [facility] ([facility]) Is patient fasting? N MPV 10.2 fL 7.4-10.4 [facility] ([facility]) Is patient fasting? N Platelets 233 10^3/uL 150-450 [facility] ([facility]) Is patient fasting? N Neut 48.9 % 37.0-80.0 [facility] ([facility]) Is patient fasting? N Lymph 38.2 % 25.0-40.0 [facility] ([facility]) Is patient fasting? N Stephenson 8.7 % 3.0-8.0 Above high normal [facility] ([facility]) Is patient fasting? N Eos 2.8 % 0.0-7.0 [facility] ([facility]) Is patient fasting? N Baso 1.0 % 0.0-2.0 [facility] ([facility]) Is patient fasting? N %Ig 0.4 % 0.0-0.0 Above high normal [facility] ([facility]) Is patient fasting? N %NRBC 0.0 % 0.0-0.0 [facility] ([facility]) Is patient fasting? N #Neut 2.40 10^3/uL 2.00-6.90 [facility] ([facility]) Is patient fasting? N #Stephenson 0.43 10^3/uL 0.00-0.90 [facility] ([facility]) Is patient fasting? N #Lymph 1.88 10^3/uL 0.60-3.40 [facility] ([facility]) Is patient fasting? N #Eos 0.14 10^3/uL 0.00-0.70 [facility] ([facility]) Is patient fasting? N #Baso 0.05 10^3/uL 0.00-0.20 [facility] ([facility]) Is patient fasting? N #Ig 0.02 10^3/uL 0.00-0.10 [facility] ([facility]) Is patient fasting? N #NRBC 0.00 10^3/uL 0.00-0.00 [facility] ([facility]) Is patient fasting? N Manual Diff Laboratory test result M EDENT ([facility]) Is patient fasting? N RBC Morph Laboratory test result [facility] ([facility]) Is patient fasting? N ID Date Data Source [id number] 10/11/2020 07:47:[address] [facility] Name Value Range Interpretation Code Description Data Regina rce(s) Supporting Document(s) 1,25-Dihydroxyvitamin D [Mass/volume] in Serum or Plasma 50.6 pg/mL 19.9-79.3 [facility] ID Date Data Source [id number] 10/08/2020 06:25:[address] [facility] Name Value Range Interpretation Code Description Data Regina rce(s) Supporting Document(s) Thyrotropin [Units/volume] in Serum or Plasma by Detec tion limit <= 0.05 mIU/L 0.95 uIU/mL 0.47 - 5.01 [facility] ID Date Data Source [id number] 10/08/2020 06:18:[address] [facility] Name Value Range Interpretation Code Description Data Regina rce(s) Supporting Document(s) [facility] L[facility] Cholesterol [Mass/volume] in Serum or Plasma 195 MG/DL 131 - 200 [facility] Deprecated Triglyceride [Mass/volume] in Serum or Plasma 362 MG/DL 3 5 - [address] [facility] HDL 17 MG/DL 29 - 86 L [facility] al Cholesterol in LDL [Mass/volume] in Serum or Plasma by Direc t assay 143 mg/dL 65 - 175 [facility] Cholesterol.total/Cholesterol in HDL [Mass Ratio] in Serum o r Plasma 11.5 3.4 - 4.[address] [facility] LDL/HDL 8.41 1.00 - 3.55 H [facility] ital CVE RISK CHOL/HDL LDL/HDLMEN: 1/2 AVERAGE 3.43 1.00 AVERAGE 4.97 3.55 2X AVERAGE 9.55 6.25 3X AVERAGE 23.99 7.99WOMEN: 1/2 AVERAGE 3.27 1.47 AVERAGE 4.44 3.22 2X AVERAGE 7.05 5.03 3X AVERAGE 11.04 6.14 ID Date Data Source [id number] 10/08/2020 06:18:[address] [facility] Name Value Range Interpretation Code Description Data Regina rce(s) Supporting Document(s) COMPREHENSIVE METABOLIC PANEL [facility] COMPREHENSIVE METABOLIC PANEL Sodium [Moles/volume] in Serum or Plasma 138 mEq/L 134 - 153 [facility] Potassium [Moles/volume] in Serum or Plasma 4.3 mEq/L 3.6 - 5.0 [facility] Chloride [Moles/volume] in Serum or Plasma 100 mEq/L 98 - 107 [facility] Carbon dioxide, total [Moles/volume] in Serum or Plasma 25 MEQ/L 22 - 30 [facility] Glucose [Mass/volume] in Serum or Plasma 73 MG/DL 70 - 99 [facility] BUN 14 MG/DL 7 - 21 [facility] Creatinine [Mass/volume] in Serum or Plasma 1.0 MG/DL 0.7 - 1.5 [facility] BUN/CREAT 14 8 - 27 [facility] Protein [Mass/volume] in Serum or Plasma 6.8 G/DL 6.3 - 8.2 [facility] Albumin [Mass/volume] in Serum or Plasma 4.6 G/DL 3.9 - 5.0 [facility] Globulin [Mass/volume] in Serum by calculation 2.2 GM/DL 2.4 - 3.[address] [facility] A/G RATIO 2.1 0.8 - 2.0 H [facility] Calcium [Mass/volume] in Serum or Plasma 9.5 MG/DL 8.4 - 10.2 [facility] Bilirubin.total [Mass/volume] in Serum or Plasma <0.7 MG/DL 0.2 - 1.3 [facility] Alkaline phosphatase [Enzymatic activity/volume] in Serum or Plasma 73 U/L 38 - 126 [facility] Aspartate aminotransferase [Enzymatic activity/volume] in Serum or Plasma 21 U/L 5 - 40 [facility] Alanine aminotransferase [Enzymatic activity/volume] in Seru m or Plasma 16 U/L 7 - 56 [facility] Anion gap 3 in Serum or Plasma 13.0 mmol/L 8.0 - 16.0 [facility] AGE 40 yrs [facility] al NON-AA GFR >60 mL/min [facility] ital AFR AMER GFR >60 mL/min [facility] spital Male GFR In terprentation [...] >32 mL/min Normal ID Date Data Source [id number] 10/08/2020 06:17:[address] [facility] Name Value Range Interpretation Code Description Data Regina rce(s) Supporting Document(s) Hemoglobin A1c/Hemoglobin.total in Blood 4.6 % 4.4 - 6.1 [facility] {A1]{HB] ID Date Data Source [id number] 10/08/2020 05:44:[address] [facility] Name Value Range Interpretation Code Description Data Regina rce(s) Supporting Document(s) CBC W/AUTOMATED DIFF [facility] COMPLETE BLOOD COUNT Leukocytes [#/volume] in Blood by Automated count 4.9 10^3/uL 4.2 - [address] [facility] Erythrocytes [#/volume] in Blood by Automated count 5.49 10^6/uL 4. 50 - 6.30 [facility] Hemoglobin [Mass/volume] in Blood 17.6 g/dL 14.0 - 16.[address] [facility] Hematocrit [Volume Fraction] of Blood by Automated count 52.2 % 4 1.0 - 51.[address] [facility] Erythrocyte mean corpuscular volume [Entitic volume] by Auto mated count 95.1 fL 80.0 - 94.[address] [facility] Erythrocyte mean corpuscular hemoglobin [Entitic mass] by Automated count 32.1 pg 27.0 - 34.0 [facility] Erythrocyte mean corpuscular hemoglobin concentration [Mass/volume] by Automated count 33.7 g/dL 31.0 - 36.0 [facility] Erythrocyte distribution width [Ratio] by Automated count 13.2 % 11.5 - 14.8 [facility] Platelets [#/volume] in Blood by Automated count 233 10^3/uL 150 - [address] [facility] Platelet mean volume [Entitic volume] in Blood by Automated count 10.2 fL 7.4 - 10.4 [facility] Neutrophils/100 leukocytes in Blood by Automated count 48.9 % 37. 0 - 80.0 [facility] Lymphocytes/100 leukocytes in Blood by Manual count 38.2 % 25.0 - 40.0 [facility] Monocytes/100 leukocytes in Blood by Automated count 8.7 % 3.0 - 8.[address] [facility] Eosinophils/100 leukocytes in Blood by Automated count 2.8 % 0.0 - 7.0 [facility] Basophils/100 leukocytes in Blood by Automated count 1.0 % 0.0 - 2.0 [facility] %IG 0.4 % 0.0 - 0.0 H [facility] %NRBC 0.0 % 0.0 - 0.0 [facility] Neutrophils [#/volume] in Blood by Automated count 2.40 10^3/uL 2.00 - 6.90 [facility] Lymphocytes [#/volume] in Blood by Automated count 1.88 10^3/uL 0.60 - 3.40 [facility] Monocytes [#/volume] in Blood by Automated count 0.43 10^3/uL 0.00 - 0.90 [facility] Eosinophils [#/volume] in Blood by Automated count 0.14 10^3/uL 0.00 - 0.70 [facility] Basophils [#/volume] in Blood by Automated count 0.05 10^3/uL 0.00 - 0.20 [facility] #IG 0.02 10^3/uL 0.00 - 0.10 [facility] ospital #NRBC 0.00 10^3/uL 0.00 - 0.00 [facility] ospital MANUAL DIFF NOT INDICATED [facility] RBC MORPH NOT INDICATED [facility] spital ID Date Data Source [id number] 07/22/2020 12:00:00 AM EST [facility] Name Value Range Interpretation Code Description Data Regina rce(s) Supporting Document(s) SARS coronavirus 2 Ag Negative [facility] This lab was ordered by [facility] and reported by [facility]. Procedure Social History Code Duration Value Status Description Data Source(s ) Smoking 12/23/2020 12:00:00 AM EDT Patient has never smoked co mpleted Patient has never smoked [facility] ([facility], ) Smoking 07/05/2020 12:00:00 AM EST Patient has never smoked co mpleted Patient has never smoked [facility] ([facility], [facility]) Vital Signs ID Date Data Source UNK Name Value Range Interpretation Code Description Data Source(s) Systolic blood pressure 138 mm[Hg] 138 mm[Hg] M EDENT ([facility]) Diastolic blood pressure 88 mm[Hg] 88 mm[Hg] [facility] ([facility]) Heart rate 89 /min 89 /min [facility] ([facility]) Body temperature 98.2 [degF] 98.2 [degF] [facility] ([facility]) Respiratory rate 16 /min 16 /min [facility] ( [facility]) Oxygen saturation in Arterial blood by Pulse oximetry 100 % 100 % [facility] ([facility]) Body weight 261.00 [lb_av] 261.00 [lb_av] MEDEN T ([facility]) Body weight 118.390 kg 118.390 kg [facility] ([facility]) Body height 70 [in_i] 70 [in_i] [facility] ([facility]) 5'10" Body mass index (BMI) [Ratio] 37.4 kg/m2 37.4 k g/m2 [facility] ([facility]) Body surface area Derived from formula 2.34 m2 2.34 m2 [facility] ([facility]) Body weight 247.00 [lb_av] 247.00 [lb_av] MEDEN T ([facility]) Body mass index (BMI) [Ratio] 35.4 kg/m2 35.4 k g/m2 [facility] ([facility], ) [place] body weight 166 [lb_av] 166 [lb_av] MEDEN T ([facility]) Body weight 112.039 kg 112.039 kg [facility] ([facility]) Body surface area Derived from formula 2.28 m2 2.28 m2 [facility] ([facility], ) Body temperature 247.0 [degF] 247.0 [degF] MEDE NT ([facility]) Body height 70 [in_i] 70 [[facility]_i] [facility] 5'10" Systolic blood pressure 130 mm[Hg] 130 mm[Hg] M EDENT ([facility], ) Diastolic blood pressure 70 mm[Hg] 70 mm[Hg] [facility] ([facility], ) Heart rate 68 /min 68 /min [facility] ([facility], ) Oxygen saturation in Arterial blood by Pulse oximetry 95 % 95 % [facility] ([facility], ) Body surface area Derived from formula 2.37 m2 2.37 m2 [facility] ([facility]) Systolic blood pressure 126 mm[Hg] 126 mm[Hg] M EDENT ([facility]) Diastolic blood pressure 82 mm[Hg] 82 mm[Hg] [facility] ([facility]) Heart rate 88 /min 88 /min [facility] ([facility]) Body temperature 97.5 [degF] 97.5 [degF] [facility] ([facility]) Respiratory rate 18 /min 18 /min [facility] ( [facility]) Oxygen saturation in Arterial blood by Pulse oximetry 99 % 99 % [facility] ([facility]) Body weight 268.50 [lb_av] 268.50 [lb_av] MEDEN T ([facility]) Body weight 121.792 kg 121.792 kg [facility] ([facility]) Body height 70 [in_i] 70 [in_i] [facility] ([facility]) 5'10" Body mass index (BMI) [Ratio] 38.5 kg/m2 38.5 k g/m2 [facility] ([facility]) Body temperature 96.9 [degF] 96.9 [degF] [facility] ([facility] ) Body height 70 [in_i] 70 [in_i] [facility] ([facility] ) 5'10" Body weight 264.00 [lb_av] 264.00 [lb_av] MEDEN T ([facility] ) Body mass index (BMI) [Ratio] 37.9 kg/m2 37.9 k g/m2 [facility] ([facility] ) Body weight 261.50 [lb_av] 261.50 [lb_av] MEDEN T ([facility] ) Body height 70 [in_i] 70 [in_i] [facility] ([facility] ) 5'10" Body mass index (BMI) [Ratio] 37.5 kg/m2 37.5 k g/m2 [facility] ([facility] ) Body temperature 97.1 [degF] 97.1 [degF] [facility] ([facility] ) Systolic blood pressure 118 mm[Hg] 118 mm[Hg] M EDENT ([facility]) Diastolic blood pressure 72 mm[Hg] 72 mm[Hg] [facility] ([facility]) Oxygen saturation in Arterial blood by Pulse oximetry 99 % 99 % [facility] ([facility]) Respiratory rate 18 /min 18 /min [facility] ( [facility]) Body surface area Derived from formula 2.34 m2 2.34 m2 [facility] ([facility]) Body weight 260.50 [lb_av] 260.50 [lb_av] MEDEN T ([facility]) Body weight 118.163 kg 118.163 kg [facility] ([facility]) Body height 70 [in_i] 70 [in_i] [facility] ([facility]) 5'10" Body mass index (BMI) [Ratio] 37.4 kg/m2 37.4 k g/m2 [facility] ([facility]) Heart rate 82 /min 82 /min [facility] ([facility]) Body temperature 97.4 [degF] 97.4 [degF] [facility] ([facility]) Body mass index (BMI) [Ratio] 38.0 kg/m2 38.0 k g/m2 [facility] ([facility], [facility]) Systolic blood pressure 136 mm[Hg] 136 mm[Hg] M EDENT ([facility], [facility]) Diastolic blood pressure 97 mm[Hg] 97 mm[Hg] [facility] ([facility], [facility]) Heart rate 80 /min 80 /min [facility] ([facility], [facility]) Respiratory rate 16 /min 16 /min [facility] ( [facility], [facility]) Oxygen saturation in Arterial blood by Pulse oximetry 96 % 96 % [facility] ([facility], [facility]) Body temperature 98.1 [degF] 98.1 [degF] [facility] ([facility], [facility]) Body weight 265.00 [lb_av] 265.00 [lb_av] LAUREL T ([facility], [facility]) Body height 70 [in_i] 70 [in_i] MED[facility] ([facility], [facility]) 5'10"
[2021-05-31] MEDS ORDERED: TRUVADA 200MG/300MG TABLET PO ONE ×2 (13:05→14:00)
[2021-05-31] MEDS ORDERED: EMTR1TAB16 PO (13:09)
[2021-05-31] MEDS ORDERED: RALT40TA PO (13:09)
[2021-05-31 13:12] LABS: ALBUMIN 4.6 GM/DL (3.2-5.2); ALT/SGPT 34 U/L (12-78); BILIRUBIN,TOTAL 0.9 MG/DL (0.2-1.0); BLOOD UREA NITROGEN 16 MG/DL (7-18); CALCIUM LEVEL 9.9 MG/DL (8.5-10.1); CARBON DIOXIDE LEVEL 25 MEQ/L (21-32); CHLORIDE LEVEL 106 MEQ/L (98-107); CREATININE FOR GFR 1.23 MG/DL (0.70-1.30); GLOMERULAR FILTRATION RATE > 60.0 (>60); GLUCOSE, FASTING 97 MG/DL (70-100); POTASSIUM SERUM 4.2 MEQ/L (3.5-5.1); SODIUM LEVEL 139 MEQ/L (136-145); TOTAL PROTEIN 7.9 GM/DL (6.4-8.2)
[2021-05-31 13:47] VITALS: BP 151/94
[2021-05-31] MEDS ORDERED: RALTEGRAVIR 400 MG TAB (ISENTRESS) PO ONE (14:00)
[2021-06-02 10:47] LABS: HEPATITIS B SURFACE ANTIBODY POSITIVE (POSITIVE)
[2021-06-02 10:56] LABS: HEPATITIS B SURFACE ANTIGEN NEGATIVE (NEGATIVE)
[2021-06-02 11:25] LABS: HEPATITIS C VIRUS ABY INDEX 0.1 INDEX (<0.8); HIV 1&2 SCREEN CENTAUR NEGATIVE (NEGATIVE)
== END 2021-05-31 13:51 | disposition home or self-care (01) ==
LOC: M ED 11:29
DX: S61.432A Puncture wound without foreign body of left hand, initial encounter (principal); Z77.21 Contact with and (suspected) exposure to potentially hazardous body fluids; W46.1XXA Contact with contaminated hypodermic needle, initial encounter; Y92.89 Other specified places as the place of occurrence of the external cause; Y93.89 Activity, other specified; Y99.0 Civilian activity done for income or pay; K21.9 Gastro-esophageal reflux disease without esophagitis; F32.9 Major depressive disorder, single episode, unspecified; Z79.899 Other long term (current) drug therapy; Z88.2 Allergy status to sulfonamides

== ENCOUNTER 2021-07-04 06:00 | Emergency (ER) | payer OTHER ==
[~2021-07-04] VITALS: Ht 180.3 cm; Wt 106.8 kg
[~2021-07-04 06:00] MED LIST changes: -HYDR-3363; +HYDR-3363 PO; -RALTEGRAVIR 400 MG TAB (ISENTRESS) PO SCH; -TRUVADA 200MG/300MG TABLET PO SCH
[2021-07-04 07:05] LABS: HEMATOCRIT 43.4 % (42.0-52.0); HEMOGLOBIN 15.2 g/dl (13.5-17.5); MEAN CORPUSCULAR HEMOGLOBIN 30.7 pg (27.0-33.0); MEAN CORPUSCULAR VOLUME 87.7 fl (80.0-96.0); PLATELET COUNT, AUTOMATED 284 10^3/uL (150-450); RED BLOOD COUNT 4.95 10^6/uL (4.30-6.10); WHITE BLOOD COUNT 7.6 10^3/uL (4.0-10.0)
[2021-07-04 07:17] LABS: AMPHETAMINES LEVEL URINE NEGATIVE (NEGATIVE); BARBITURATES URINE NEGATIVE (NEGATIVE); BENZODIAZEPINES URINE NEGATIVE (NEGATIVE); CANNABINOIDS URINE NEGATIVE (NEGATIVE); COCAINE METABOLITE URINE NEGATIVE (NEGATIVE); METHADONE URINE NEGATIVE (NEGATIVE); OPIATES URINE NEGATIVE (NEGATIVE); PHENCYCLIDINE URINE NEGATIVE (NEGATIVE)
[2021-07-04] MEDS ORDERED: LORazepam 2 MG TAB PO PRN (07:30)
[2021-07-04 07:32] LABS: RSV AMPLIFICATION NEGATIVE (NEGATIVE)
[2021-07-04 07:37] LABS: ACETAMINOPHEN LEVEL < 2.0 UG/ML (10.0-30.0); ALBUMIN 3.8 GM/DL (3.2-5.2); ALT/SGPT 65 U/L (12-78); BILIRUBIN,DIRECT 0.2 MG/DL (0.0-0.2); BILIRUBIN,TOTAL 0.7 MG/DL (0.2-1.0); BLOOD UREA NITROGEN 16 MG/DL (7-18); CALCIUM LEVEL 8.7 MG/DL (8.5-10.1); CARBON DIOXIDE LEVEL 24 MEQ/L (21-32); CHLORIDE LEVEL 110 MEQ/L (98-107); CREATININE FOR GFR 1.07 MG/DL (0.70-1.30); ETHYL ALCOHOL (ETHANOL) 0.085 % (0.000-0.010); GLOMERULAR FILTRATION RATE > 60.0 (>60); GLUCOSE, FASTING 99 MG/DL (70-100); SALICYLATE LEVEL < 1.7 MG/DL (5.0-30.0); SODIUM LEVEL 143 MEQ/L (136-145); TOTAL PROTEIN 7.1 GM/DL (6.4-8.2)
[2021-07-04] MEDS: MULTIVITAMINS/MINERALS THERAP 1 TAB PO SCH (12:00)
[2021-07-04] MEDS: FOLIC ACID 1 MG TAB PO SCH (12:00)
[2021-07-04] MEDS: THIAMINE 100 MG TAB PO SCH ×2 (12:00→20:46)
[2021-07-04] MEDS ORDERED: ACETAMINOPHEN 500 MG TAB PO ONE (18:05)
[2021-07-04] MEDS ORDERED: DULoxetine 30MG CAPSULE (CYMBALTA) PO ONE (20:30)
[2021-07-04] MEDS ORDERED: hydrOXYzine 25 MG TAB PO ONE (20:45)
[2021-07-05] MEDS: THIAMINE 100 MG TAB PO SCH ×2 (09:00→22:50)
[2021-07-05] MEDS: MULTIVITAMINS/MINERALS THERAP 1 TAB PO SCH (09:00)
[2021-07-05] MEDS: FOLIC ACID 1 MG TAB PO SCH (09:00)
[2021-07-05] MEDS ORDERED: HOME MED LIST COMPLETE! XX SCH (15:45)
[2021-07-05] MEDS ORDERED: hydrOXYzine 25 MG TAB PO ONE (20:10)
[2021-07-05] MEDS ORDERED: DULoxetine 30MG CAPSULE (CYMBALTA) PO ONE (20:10)
[2021-07-06] MEDS ORDERED: OMEPRAZOLE 20 MG CAP PO ONE (08:10)
[2021-07-06] MEDS: THIAMINE 100 MG TAB PO SCH ×2 (09:28→21:34)
[2021-07-06] MEDS: FOLIC ACID 1 MG TAB PO SCH (09:28)
[2021-07-06] MEDS: MULTIVITAMINS/MINERALS THERAP 1 TAB PO SCH (09:28)
[2021-07-06] MEDS: OMEPRAZOLE 20 MG CAP PO SCH (09:28)
[2021-07-06] MEDS ORDERED: hydrOXYzine 25 MG TAB PO ONE (21:50)
[2021-07-06] MEDS ORDERED: DULoxetine 30MG CAPSULE (CYMBALTA) PO ONE (21:50)
[2021-07-07] MEDS: MULTIVITAMINS/MINERALS THERAP 1 TAB PO SCH (09:04)
[2021-07-07] MEDS: FOLIC ACID 1 MG TAB PO SCH (09:04)
[2021-07-07] MEDS: OMEPRAZOLE 20 MG CAP PO SCH (09:04)
[2021-07-07 15:03] VITALS: BP 148/83
== END 2021-07-07 15:05 ==
LOC: M ED 06:00
DX: R45.851 Suicidal ideations (principal); F10.10 Alcohol abuse, uncomplicated; F32.A Depression, unspecified; Z86.16 Personal history of COVID-19; Z88.2 Allergy status to sulfonamides; Z79.899 Other long term (current) drug therapy

== ENCOUNTER 2022-02-09 17:22 | Emergency (ER) | payer OTHER ==
[~2022-02-09] VITALS: Ht 177.8 cm; Wt 118.2 kg
[~2022-02-09 17:22] MED LIST changes: +OMEP-173 PO; -OMEP-218 PO
[2022-02-09] MEDS ORDERED: LIDOCAINE W/EPINEPHRINE 1% 20ML VIAL SC ONE (20:50)
[2022-02-09] MEDS ORDERED: NEOSPORIN OINT 0.9 GM PKT TOP ONE (20:50)
[2022-02-09 21:41] VITALS: BP 144/99
== END 2022-02-09 21:50 | disposition home or self-care (01) ==
LOC: M ED 17:22
DX: S51.811A Laceration without foreign body of right forearm, initial encounter (principal); W26.9XXA Contact with unspecified sharp object(s), initial encounter; Y99.0 Civilian activity done for income or pay; K21.9 Gastro-esophageal reflux disease without esophagitis; Z79.899 Other long term (current) drug therapy; Z88.2 Allergy status to sulfonamides

== ENCOUNTER 2022-03-03 01:00 | Emergency (ER) | payer OTHER ==
[~2022-03-03] VITALS: Ht 177.8 cm; Wt 118.2 kg
[2022-03-03 01:00] VITALS: BP 136/89
[2022-03-03 02:06] LABS: BASO # 0.1 10^3/uL (0.0-0.2); BASO % 0.8 % (0.0-1.0); EOS # 0.3 10^3/uL (0.0-0.5); EOS % 4.4 % (0.0-3.0); HEMATOCRIT 47.1 % (42.0-52.0); HEMOGLOBIN 16.5 g/dl (13.5-17.5); LYMPH # 1.9 10^3/uL (1.5-5.0); LYMPH % 29.2 % (24.0-44.0); MEAN CORPUSCULAR HEMOGLOBIN 30.8 pg (27.0-33.0); MONO # 0.4 10^3/uL (0.0-0.8); MONO % 5.8 % (2.0-8.0); NEUTROPHILS # 3.8 10^3/uL (1.5-8.5); NEUTROPHILS % 59.3 % (36.0-66.0); PLATELET COUNT, AUTOMATED 236 10^3/uL (150-450); RED BLOOD COUNT 5.35 10^6/uL (4.30-6.10); WHITE BLOOD COUNT 6.4 10^3/uL (4.0-10.0)
[2022-03-03 02:17] LABS: INR 0.88; PROTHROMBIN TIME 12.3 SECONDS (12.7-14.5)
[2022-03-03 03:10] LABS: BLOOD UREA NITROGEN 16 MG/DL (7-18); CALCIUM LEVEL 9.8 MG/DL (8.5-10.1); CARBON DIOXIDE LEVEL 27 MEQ/L (21-32); CHLORIDE LEVEL 106 MEQ/L (98-107); GLOMERULAR FILTRATION RATE > 60.0 (>60); GLUCOSE, FASTING 109 MG/DL (70-100); POTASSIUM SERUM 3.6 MEQ/L (3.5-5.1); SODIUM LEVEL 138 MEQ/L (136-145)
[2022-03-03 03:15] LABS: CK-MB VALUE MASS 1.4 NG/ML (<3.6); MB/CK RELATIVE INDEX 0.58 (< OR =4)
== END 2022-03-03 05:02 | disposition left against medical advice (07) ==
LOC: M ED 01:00
DX: Z53.21 Procedure and treatment not carried out due to patient leaving prior to being seen by health care provider (principal)